=== PATIENT | female | born 1955 | race Hispanic/Latino ===

== ENCOUNTER 2017-07-08 08:48 | Observation (INO) | payer BC, OTHER ==
[2017-07-08 08:48] VITALS: BMI 49.3
--- NOTE | 2017-07-08 09:24 | ED PDOC ---
Arrival/HPI - General Chief Complaint: Abnormal Labs Time Seen by Provider: 07/08/17 09:16 - History of Present Illness Narrative History of Present Illness (Text): 07/08/17 09:21 62yo female presents to the ER per her PMDs request. Pt denies any complaints and states she feels well other cowart. Past Medical History - Provider Review Nursing Documentation Reviewed: Yes - Infectious Disease Hx of Infectious Diseases: None - Cardiac Hx Cardiac Disorders: Yes Hx Hypertension: Yes - Pulmonary Hx Respiratory Disorders: Yes Hx Pulmonary Embolism: Yes (1 yr ago) - Neurological Hx Neurological Disorder: No - HEENT Hx HEENT Disorder: Yes Hx Cataracts: Yes (Cataract sx) - Renal Hx Renal Disorder: No - Endocrine/Metabolic Hx Endocrine Disorders: Yes Hx Hypothyroidism: Yes - Hematological/Oncological Hx Blood Disorders: No - Integumentary Hx Dermatological Disorder: No - Musculoskeletal/Rheumatological Hx Musculoskeletal Disorders: No - Gastrointestinal Hx Gastrointestinal Disorders: Yes Hx Gastroesophageal Reflux: Yes - Genitourinary/Gynecological Hx Genitourinary Disorders: No - Psychiatric Hx Psychophysiologic Disorder: No Hx Substance Use: No - Surgical History Hx Cataract Extraction: Yes (tyrone) Hx Cholecystectomy: Yes - Anesthesia Hx Anesthesia Reactions: No Hx Malignant Hyperthermia: No - Suicidal Assessment Feels Threatened In Home Enviroment: No Family/Social History Family/Social History: Unknown Family HX Smoking Status: Never Smoked Hx Alcohol Use: No Hx Substance Use: No Hx Substance Use Treatment: No Allergies/Home Meds Allergies/Adverse Reactions: Allergies erythromycin base Allergy (Verified 07/08/17 08:55) URTICARIA strawberry Allergy (Verified 07/08/17 08:55) ITCHING Home Medications: Home Meds Medication Instructions Recorded Confirmed Metoprolol Succinate [Toprol XL] 100 mg PO QAM 03/10/12 07/09/16 Levothyroxine [Synthroid] 150 mcg PO DAILY 06/23/16 07/09/16 Warfarin [Coumadin] 4 mg PO DAILY 06/23/16 07/10/16 Cyanocobalamin (Vitamin B-12) 50 mcg PO DAILY 07/09/16 07/09/16 [Vitamin B-12] Folic Acid 1 mg PO DAILY 07/09/16 07/09/16 Metoprolol Succinate [Toprol XL] 50 mg PO HS 07/09/16 07/09/16 Physical Exam - Physical Exam Narrative Physical Exam (Text): - Review of Systems Constitutional: Normal. absent: Fatigue, Weight Change, Fevers Eyes: Normal ENT: denies sore throat, denies tristhmus Respiratory: Normal. absent: SOB, Cough, Sputum Cardiovascular: absent: Chest Pain, Palpitations, Syncope Gastrointestinal: Normal. absent: Abdominal Pain, Diarrhea, Nausea, Vomiting Genitourinary: Normal. absent: Dysuria, Frequency, Hematuria, vaginal bleeding Musculoskeletal: Normal. absent: Arthralgias, Back Pain, Neck Pain Skin: no rashes, no erythema Neurological: absent: Focal Weakness Endocrine: Normal Hemo/Lymphatic: Normal Psychiatric: No suicidal or homicidal ideations Physical exam Patient appears age appropriate in no distress, speaking full sentences without difficulty - Systems Exam Head: Present: Atraumatic, Normocephalic Pupils: Present: PERRL Extroacular Muscles: Present: EOMI Conjunctiva: Present: Normal Mouth: Present: Moist Mucous Membranes Neck: Present: Normal Range of Motion. No: MIDLINE TENDERNESS, Paraspinal Tenderness Respiratory/Chest: Present: Clear to Auscultation, Good Air Exchange. No: Respiratory Distress, Accessory Muscle Use, Tachypneic Cardiovascular: Present: Regular Rate and Rhythm, Normal S1, S2, Peripheal Pulses Present. No: Murmurs Abdomen: Present: Normal Bowel Sounds. No: Tenderness, Distention, Peritoneal Signs, Rebound, Guarding Back: Present: Normal Inspection. No: Midline Tenderness, Paraspinal Tenderness Upper Extremity: Present: Normal Inspection. No: Cyanosis, Edema Lower Extremity: Present: Normal Inspection. No: Edema Neurological: Present: GCS=15, Speech Normal, cranial nerves II through XII fully intact with no cerebellar abnormality, neurosensory fully intact. No focal neurological deficits. Skin: Present: Warm, Dry, Normal Color. No: Rashes Lymphatic: Present: OX3, NI, NC Psychiatric: Present: Alert, Oriented x 3, Normal Insight, Normal Concentration Vital Signs Reviewed: Yes Vital Signs Temp Pulse Resp BP Pulse Ox 07/08/17 08:52 98.9 F 57 L 16 119/85 97 Temperature: Afebrile Blood Pressure: Normal Pulse: Bradycardic Respiratory Rate: Normal Appearance: Positive for: Well-Appearing Pain Distress: None Mental Status: Positive for: Alert and Oriented X 3 Medical Decision Making ED Course and Treatment: 07/08/17 09:23 gilles Crawford she states patient with recently diagnosed Non-Hodgkins Lymphoma. States she needs an emergent procedure, and asked to keep NPO, admin fluids, and obs under her service. pt aware of and agrees with plan. - Medication Orders Current Medication Orders: Sodium Chloride (Sodium Chloride 0.9%) 1,000 mls @ 100 mls/hr IV .Q10H TANYA Disposition/Present on Arrival - Present on Arrival Any Indicators Present on Arrival: No History of DVT/PE: Yes History of Uncontrolled Diabetes: No Urinary Catheter: No History of Decub. Ulcer: No History Surgical Site Infection Following: None - Disposition Have Diagnosis and Disposition been Completed?: Yes Diagnosis: Non-Hodgkin lymphoma Disposition: HOSPITALIZED Disposition Time: 09:24 Patient Plan: Observation Condition: STABLE
[2017-07-08] MEDS ORDERED: Sodium Chloride 0.9% 1,000 ML IV SCH (09:30)
[2017-07-08 09:47] LABS: BASO # 0.03 K/mm3 (0.0-2.0); BASO % 0.2 % (0.0-3.0); EOS # 0.1 (0.0-0.7); EOS % 0.7 % (1.5-5.0); GRAN # 3.67 (1.4-6.5); HEMATOCRIT 39.9 % (36.0-48.0); LYMPH % 64.9 % (22.0-35.0); MEAN CELL VOLUME 93.2 fl (80.0-105.0); MEAN CORPUSCULAR HEMOGLOBIN 30.8 pg (25.0-35.0); MEAN CORPUSCULAR HGB CONC 33.1 g/dl (31.0-37.0); MEAN PLATELET VOLUME 9.6 fl (7.0-11.0); MONO # 0.5 (0.1-0.6); MONO % 4.2 % (1.0-6.0); RED CELL DISTRIBUTION WIDTH 14.4 % (11.5-14.5); WHITE BLOOD COUNT 12.3 10^3/ul (4.5-11.0)
[2017-07-08 09:51] LABS: ALB/GLOB RATIO 1.4 (1.1-1.8); ALKALINE PHOSPHATASE 90 U/L (38-126); ALT/SGPT 64 U/L (7-56); AST/SGOT 67 U/L (14-36); BILIRUBIN,TOTAL 0.7 mg/dL (0.2-1.3); BLOOD UREA NITROGEN 15 mg/dL (7-21); CALCIUM 9.5 mg/dL (8.4-10.5); CARBON DIOXIDE 29 mmol/L (21-33); CHLORIDE 104 mmol/L (95-110); GFR AFRICAN-AMERICAN > 60; GLUCOSE,RANDOM 101 mg/dL (70-110); POTASSIUM 3.9 mmol/L (3.6-5.0); SODIUM 143 mmol/L (132-148)
[2017-07-08 09:53] LABS: INR 1.02 (0.93-1.08); PARTIAL THROMBOPLASTIN TIME 26.5 Seconds (23.7-30.8)
[2017-07-08 10:37] VITALS: TEMP 97.8
[2017-07-08] MEDS ORDERED: Lidocaine 1% Inj (20ml) ONE (12:14)
[2017-07-08] MEDS ORDERED: Propofol 10 mg/ml Inj (20 ML) ONE ×3 (12:18→12:43)
[2017-07-08] MEDS ORDERED: Lactated Ringer's 1,000 ML IV SCH (13:00)
[2017-07-08 13:02] VITALS: RESP 16
[2017-07-08 13:18] VITALS: O2SAT 97
[2017-07-08 13:29] VITALS: BP 117/56; PULSE 58
[2017-07-08] MEDS ORDERED: Levothyroxine 100 MCG TAB PO SCH (13:30)
[2017-07-08] MEDS ORDERED: Pantoprazole 40 mg EC Tab PO SCH (13:30)
[2017-07-08] MEDS ORDERED: Metoprolol Succinate 50 mg XL Tab PO SCH (22:00)
--- NOTE | 2017-07-08 23:06 | CARD ---
APPROVED REPORT EKG Measurement Heart [id number] <Conclusion> Sinus bradycardia Left ventricular hypertrophy with QRS widening Abnormal ECG
--- NOTE | 2017-07-09 00:17 | HP ---
DATE OF EVALUATION: 07/08/2017 HISTORY OF PRESENT ILLNESS: is a 62-year-old female with history of DVT and pulmonary embolism. She complained of dizziness and shortness of breath this morning, she was advised to go to the ER. Symptoms resolved on arrival in the ER. She has persistent leukocytosis. Flow on peripheral blood showed non-Hodgkin's lymphoma. She had PET scan done on Thursday, results are awaited. No chest pain,no shortness of breath. She is currently on Lovenox. PAST MEDICAL HISTORY: Pulmonary embolism, DVT, hypertension,hypothyroidism, and GE reflux. PAST SURGICAL HISTORY: Cholecystectomy. ALLERGIES: ERYTHROMYCIN, STRAWBERRY. HOME MEDICATIONS: Metoprolol 100 mg daily, levothyroxine 150 mcg daily, Coumadin, vitamin B12, folic acid 1 mg daily, 50 mg at bedtime. REVIEW OF SYSTEMS: As per HPI, rest of the 12-point review of systems reviewed and negative. PHYSICAL EXAMINATION: GENERAL: Comfortable in bed. No acute distress. VITAL SIGNS: Stable. Temperature 98.9, heart rate is 57 per minute, respiratory rate 16 per minute, blood pressure 120/85, pulse ox is 97% on room air. HEENT: Normal. Oral mucosa moist. NECK: Supple. No lymphadenopathy. CHEST: S1 and S2 normal. No murmur. No gallop. CARDIOVASCULAR: Within normal limits. ABDOMEN: Soft and nontender. No hepatosplenomegaly. EXTREMITIES: No edema. GINNING OPERATOR: Alert and oriented x3. No focal sensory or motor deficits. LABORATORY DATA: White count 12.3, hemoglobin 13.2, platelet count 176, granulocyte 30%, lymphocyte 64%. Sodium 143, potassium 3.9, creatinine 0.7, AST 67, ALT 64, PT 11, INR 1.02, PTT 26.5. ASSESSMENT AND PLAN: 1. History of pulmonary embolism. 2. Hypercoagulable state. 3. History of DVT. 4. Recent diagnosis of non-Hodgkin's lymphoma. 5. Lymphocytosis, leukocytosis. PLAN: She will be admitted to the hospital. IV fluid normal saline. We will continue home medication. Continue Toprol, continue thiazide 12.5 mg daily, levothyroxine 100 mcg. Continue beta-rachid, metoprolol 50 mg daily, Tylenol 650 q. 4 hours p.r.n. Discussed with the staff nurse the patient. Belia Crawford MD <
--- NOTE | 2017-07-09 02:43 | DS ---
HOSPITAL COURSE: Please see the detailed note H&P dictated on the same day and she is being discharged on day. General condition improved during hospitalization and IV fluid given. She underwent bone marrow aspiration biopsy under conscious sedation. Tolerated procedure very well. Condition stable postprocedure. IV fluids was continued postprocedure. Dizziness resolved. She walked to around prior to discharge. She was able to pass urine. Vital stable. Advised continuing home medications, resume Lovenox tomorrow 100 mg subcutaneously b.i.d. Start Coumadin 10 mg daily for 3 days and then 4 mg daily. Followup in the office in 1 week. Time spent in preparing discharge and coordinating care 50 minutes. Belia Crawford MD
--- NOTE | 2017-07-09 08:51 | PROCN ---
DATE: 07/08/2017 PROCEDURE: 1. Bone marrow aspiration. 2. Bone marrow biopsy. ANESTHESIA: Conscious sedation, local 1% lidocaine. INDICATION FOR THE PROCEDURE: Non-Hodgkin's lymphoma. PROCEDURE NOTE: The patient was laid in left lateral position, cleaning and dressing done on the right iliac crest. She was given conscious sedation for the procedure by cosmetician in the OR. Local anesthesia was given on the right iliac crest with 1% lidocaine. Bone marrow aspirate sample obtained from Jamshidi needle. Bone marrow biopsy was obtained from the different bone marrow puncture site. Good specimen obtained for bone marrow biopsy, 0.6 cm. Specimen sent for molecular study. Cytogenetic slide made bedside. Clot biopsy, bone marrow specimen sent to [facility] lab. No complications for bleeding or pain. She tolerated the procedure well. Vitals stable post procedure. Belia Crawford MD
== END 2017-07-08 18:25 | disposition home or self-care (01) ==
LOC: ED 08:48 → ERH 09:16 → 3RNO 14:20
PROVIDERS: ADMIT Internal Medicine Medical Oncology; ATTEND Internal Medicine Medical Oncology
DX: C85.90 Non-Hodgkin lymphoma, unspecified, unspecified site (principal); D68.59 Other primary thrombophilia; D72.820 Lymphocytosis (symptomatic); E03.9 Hypothyroidism, unspecified; I10 Essential (primary) hypertension; K21.9 Gastro-esophageal reflux disease without esophagitis; Z79.01 Long term (current) use of anticoagulants; Z79.899 Other long term (current) drug therapy; Z86.711 Personal history of pulmonary embolism; Z86.718 Personal history of other venous thrombosis and embolism; Z90.49 Acquired absence of other specified parts of digestive tract; Z98.42 Cataract extraction status, left eye; Z98.41 Cataract extraction status, right eye; Z88.1 Allergy status to other antibiotic agents; Z91.018 Allergy to other foods; R40.2412 Glasgow coma scale score 13-15, at arrival to emergency department
CPT/HCPCS: 38221; 80053; 85025; 85610; 85730; 93005; 99281; G0378; J2704; J7040

== ENCOUNTER 2017-09-09 18:13 | Inpatient (IN) | payer BC, OTHER ==
[2017-09-09 18:18] VITALS: BMI 47.0
[2017-09-09] MEDS ORDERED: Ipratropium 0.02% Inhal Soln (0.5 mg/2.5 ml) UD IH STA (18:24)
[2017-09-09 18:56] LABS: VENOUS BLOOD GAS BASE EXCESS 3.2 mmol/L (0.0-2.0); VENOUS BLOOD PH 7.41 (7.32-7.43)
[2017-09-09 18:59] LABS: BASO # 0.02 K/mm3 (0.0-2.0); BASO % 0.5 % (0.0-3.0); EOS % 0.8 % (1.5-5.0); GRAN # 1.76 (1.4-6.5); GRAN % 46.8 % (50.0-68.0); HEMATOCRIT 28.5 % (36.0-48.0); LYMPH # 1.6 (1.2-3.4); LYMPH % 41.5 % (22.0-35.0); MEAN CELL VOLUME 95.3 fl (80.0-105.0); MEAN CORPUSCULAR HEMOGLOBIN 30.1 pg (25.0-35.0); MEAN CORPUSCULAR HGB CONC 31.6 g/dl (31.0-37.0); MEAN PLATELET VOLUME 9.1 fl (7.0-11.0); MONO # 0.4 (0.1-0.6); MONO % 10.4 % (1.0-6.0); RED CELL DISTRIBUTION WIDTH 16.8 % (11.5-14.5); WHITE BLOOD COUNT 3.8 10^3/ul (4.5-11.0)
--- NOTE | 2017-09-09 19:05 | ED PDOC ---
Arrival/HPI - General Historian: Patient - History of Present Illness Time/Duration: Other (Several Days) Symptom Course: Unchanged Activities at Onset: Rest, Light Context: Home <Alyse Wang PA-C - Last Filed: 09/09/17 22:44> <Sari Malloy - Last Filed: 09/10/17 00:00> - General Chief Complaint: Shortness Of Breath Time Seen by Provider: 09/09/17 18:23 - History of Present Illness Narrative History of Present Illness (Text): 09/09/17 18:57 A 62 year old female whose past medical history includes Non- Hodgkin's Lymphoma , massive PE 2 years ago, on Coumadin, presents to the emergency department after being sent in by her oncologist, Dr. Crawford, with several day duration shortness of breath, worsening today. She states that her symptoms are worsened with activity when she walks more than 50 feet. She states that her symptoms are similar to those when she was diagnosed with PE, but the only difference was that she had irregular heart beat at the time, which she is not experiencing today. She also notes 10 day duration dry cough. She states that 2 days ago she had blood work done and was told that her INR was 1.6 and was advised to increase her dose of Coumadin. She also states that her hemoglobin was 9.7, but her baseline hemoglobin is 12. The patient denies fevers, chills, headache, dizziness, chest pain, abdominal pain, nausea, vomiting, diarrhea, back pain, neck pain, urinary/bowel changes, bloody/dark stools, sick contacts, history of asthma, recent surgeries/hospitalizations or any other complaint. PMD: Dr. Scooter Monge Oncologist: Dr. Crawford (Alyse Wang PA-C) Past Medical History - Provider Review Nursing Documentation Reviewed: Yes - Travel History Have you recently traveled outside [place] w/in the past 3 mons?: No - Infectious Disease Hx of Infectious Diseases: None - Cardiac Hx Cardiac Disorders: Yes Hx Hypertension: Yes - Pulmonary Hx Respiratory Disorders: Yes Hx Pulmonary Embolism: Yes (2 yrs ago) - Neurological Hx Neurological Disorder: No - HEENT Hx HEENT Disorder: Yes Hx Cataracts: Yes (Cataract sx) - Renal Hx Renal Disorder: No - Endocrine/Metabolic Hx Endocrine Disorders: Yes Hx Hypothyroidism: Yes Other/Comment: lymphoma - Hematological/Oncological Hx Blood Transfusions: No - Integumentary Hx Dermatological Disorder: No - Musculoskeletal/Rheumatological Hx Musculoskeletal Disorders: No - Gastrointestinal Hx Gastrointestinal Disorders: Yes Hx Gastroesophageal Reflux: Yes - Genitourinary/Gynecological Hx Genitourinary Disorders: No - Psychiatric Hx Psychophysiologic Disorder: No Hx Substance Use: No - Surgical History Hx Cataract Extraction: Yes (tyrone) Hx Cholecystectomy: Yes - Anesthesia Hx Anesthesia Reactions: No Hx Malignant Hyperthermia: No - Suicidal Assessment Feels Threatened In Home Enviroment: No <Alyes Wang PA-C - Last Filed: 09/09/17 22:44> Family/Social History - Physician Review Nursing Documentation Reviewed: Yes Family/Social History: Other (+ h/o clotting factor deficiency, does not recall which kind, however had a father and a brother who both had a PE) Smoking Status: Never Smoked Hx Alcohol Use: No Hx Substance Use: No Hx Substance Use Treatment: No <Alyse Wang PA-C - Last Filed: 09/09/17 22:44> Allergies/Home Meds <Alyse Wang PA-C - Last Filed: 09/09/17 22:44> <Sari Malloy - Last Filed: 09/10/17 00:00> Allergies/Adverse Reactions: Allergies erythromycin base Allergy (Verified 09/09/17 18:18) URTICARIA strawberry Allergy (Verified 09/09/17 18:18) ITCHING Home Medications: Home Meds Medication Instructions Recorded Confirmed Metoprolol Succinate [Toprol XL] 100 mg PO [facility] 03/10/12 09/09/17 Levothyroxine [Synthroid] 100 mcg PO DAILY 06/23/16 09/09/17 Warfarin [Coumadin] 4 mg PO DAILY 06/23/16 09/09/17 Cyanocobalamin (Vitamin B-12) 0 mcg PO DAILY 07/09/16 09/09/17 [Vitamin B-12] Folic Acid 1 mg PO DAILY 07/09/16 09/09/17 Metoprolol Succinate [Toprol XL] 50 mg PO HS 07/09/16 09/09/17 Pantoprazole Sodium [Protonix] 40 mg PO DAILY 09/20/17 11/22/17 hydroCHLOROthiazide [Microzide] 12.5 mg PO DAILY 07/08/17 09/09/17 Review of Systems - Physician Review All systems were reviewed & negative as marked: Yes - Review of Systems Constitutional: absent: Fevers, Night Sweats Respiratory: SOB, Cough (Dry Cough) Cardiovascular: absent: Chest Pain Gastrointestinal: absent: Abdominal Pain, Stool Changes, Diarrhea, Nausea, Vomiting Genitourinary Female: absent: Urine Output Changes Musculoskeletal: absent: Back Pain, Neck Pain Neurological: Other (generalized weakness). absent: Headache, Dizziness <Alyse Wang PA-C - Last Filed: 09/09/17 22:44> Physical Exam Vital Signs Reviewed: Yes Temperature: Afebrile Blood Pressure: Hypertensive Pulse: Tachycardic Respiratory Rate: Normal Appearance: Positive for: Non-Toxic, Comfortable Pain Distress: None Mental Status: Positive for: Alert and Oriented X 3 - Systems Exam Head: Present: Atraumatic, Normocephalic Pupils: Present: PERRL Extroacular Muscles: Present: EOMI Conjunctiva: Present: Normal Mouth: Present: Dry Neck: Present: Normal Range of Motion Respiratory/Chest: Present: Clear to Auscultation, Good Air Exchange. No: Respiratory Distress, Accessory Muscle Use Cardiovascular: Present: Regular Rate and Rhythm, Normal S1, S2. No: Murmurs Abdomen: Present: Normal Bowel Sounds. No: Tenderness, Distention, Peritoneal Signs Rectal: Present: Hemorrhoids (external hemorrhoids), Other (female RN was present during the entire exam). No: Occult Blood, Rectal Tenderness, Gross Blood Back: Present: Normal Inspection Upper Extremity: Present: Normal Inspection. No: Cyanosis, Edema Lower Extremity: Present: Normal Inspection. No: Edema Neurological: Present: GCS=15, CN II-XII Intact, Speech Normal Skin: Present: Pale Psychiatric: Present: Alert, Oriented x 3, Normal Insight, Normal Concentration <Alyse Wang PA-C - Last Filed: 09/09/17 22:44> Vital Signs Temp Pulse Resp BP Pulse Ox 09/09/17 18:26 22 09/09/17 18:18 99.1 F 100 H 20 154/113 H 98 09/09/17 18:17 99.1 F 100 H 20 154/113 H 98 Medical Decision Making - Lab Interpretations I have reviewed the lab results: Yes - EKG Interpretation Interpreted by ED Physician: Yes (NSR at 85 bpm, incomplete RBBB) Type: 12 lead EKG <Alyse Wang PA-C - Last Filed: 09/09/17 22:44> <Sari Malloy - Last Filed: 09/10/17 00:00> ED Course and Treatment: 09/09/17 19:07 Impression: Patient presents to the emergency department for further evaluation for several day duration shortness of breath. Patient advised by her oncologist to come into the emergency department. DDX: r/o pneumonia vs PE vs CHF Plan: -- EKG -- Chest X-ray -- Labs -- Urinalysis -- Urine Culture -- Atrovent -- Reassess and disposition Prior Visits: Notes and results from previous visits were reviewed. Patient was last seen in the emergency department on 07/08/2017. Patient was seen in the emergency department for evaluation per her PMD's request. Patient denied any complaints. Patient was hospitalized. Progress Notes: EKG shows NSR. Labs reviewed : wbc 3.8, hgb 9, trop (-), bnp (-), ddimer (+), inr 1.5. Labs compared to prior visit, in Jun and Aug last year, it was noted then that the patient had a stable hgb at 13. Considering the patient's complaints and history, CTA chest ordered. On re-evaluation, patient is laying in bed comfortably in no respiratory distress, speaking in full sentences. Patient further adds that she was dx with lymphoma Jun this year, she has not had any chemo or radiation treatment, she was told "watchful waiting" by her oncologist. Lab results d/w the patient. Notified of plan to order CTA chest. CXR still pending. CXR is wnl, CTA chest is (-) for PE. Diagnostic results d/w the patient and family in great detail. Dx of symptomatic anemia d/w the patient. Patient notified of plan for further inpatient observation and treatment which she is agreeable to. (Alyse Wang PA-C) - Lab Interpretations Lab Results: 09/09/17 18:30 09/09/17 18:30 Lab Results 09/09/17 22:20: Urine Color Yellow, Urine Appearance Clear, Urine pH 5.5, Ur Specific [place] 1.010, Urine Protein Negative, Urine Glucose (UA) Negative, Urine Ketones Negative, Urine Blood Negative, Urine Nitrate Negative, Urine Bilirubin Negative, Urine Urobilinogen 0.2, Ur Leukocyte Esterase Negative 09/09/17 19:00: Retic Count 4.50 H 09/09/17 19:00: Iron 45, TIBC 340.8, % Saturation 13 L 09/09/17 19:00: Fibrinogen 445 H, D-Dimer, Quantitative 666 H 09/09/17 18:30: Sodium 142, Chloride 106, Potassium 4.1, Carbon Dioxide 28, Anion Gap 12, BUN 20, Creatinine 1.0, Est GFR ( Amer) > 60, Est GFR (Non- Af Amer) 56, Random Glucose 102, Calcium 9.6, Total Bilirubin 1.1, AST 25, ALT 26, Alkaline Phosphatase 94, Lactate Dehydrogenase 967 H, Total Creatine Kinase 62, Troponin I < 0.01, NT-Pro-B Natriuret Pep 188, Total Protein 6.6, Albumin 3.8, Globulin 2.8, Albumin/Globulin Ratio 1.4 09/09/17 18:30: pO2 58 H, VBG pH 7.41, VBG pCO2 45.0, VBG HCO3 28.5 H, VBG Total CO2 29.9 H, VBG O2 Sat (Calc) 93.4 H, VBG Base Excess 3.2 H, VBG Potassium 4.1, Sodium 140.0, Chloride 109.0 H, Glucose 104, Lactate 1.5, FiO2 21.0, Venous Blood Potassium 4.1 09/09/17 18:30: PT 17.2 H, INR 1.56 H, APTT 27.6 09/09/17 18:30: WBC 3.8 L D, RBC 2.99 L, Hgb 9.0 L D, Hct 28.5 L, MCV 95.3, MCH 30.1, MCHC 31.6, RDW 16.8 H, Plt Count 142, MPV 9.1, Gran % 46.8 L, Lymph % ( Auto) 41.5 H, [place] % (Auto) 10.4 H, Eos % (Auto) 0.8 L, Baso % (Auto) 0.5, Gran # 1.76, Lymph # 1.6, [place] # 0.4, Eos # 0.0, Baso # 0.02 - RAD Interpretation Narrative RAD Interpretations (Text): 09/09/17 22:27 CXR : NAD as read by PA CTA chest : FINDINGS: LIMITATIONS: Moderate respiratory motion artifact. PULMONARY ARTERIES: Exam is somewhat limited for the detection of pulmonary emboli secondary to motion artifact. Allowing for this, no definite pulmonary emboli are seen. AORTA: No evidence of aortic dissection. LUNGS: Low lung volumes. Scattered areas of mosaic attenuation in the lung apices, which could represent scattered air trapping from small airways disease, such as reactive airways disease. Areas of linear scarring or atelectasis in the right lung. Multifocal, patchy ground glass densities in the posterior lungs bilaterally, most compatible with diffuse dependent atelectasis. No definite focal consolidation/infiltrate is seen in the lungs. No evidence of diffuse pulmonary vascular congestion. PLEURAL SPACE: No pneumothorax or pleural effusions seen. HEART: Heart appears mildly enlarged. Coronary artery calcification. No evidence of significant pericardial effusion. BONES/JOINTS: No acute bony abnormality identified. SOFT TISSUES: No acute abnormality of the visualized soft tissues seen. LYMPH NODES: No evidence of diffuse lymphadenopathy. SPLEEN: Visualized portions of the spleen appear enlarged. The spleen is incompletely visualized. IMPRESSION: - No evidence of pulmonary embolism or other significant acute abnormality in the chest. - Splenomegaly incidentally noted. - See above for remaining findings. Dictated and Authenticated by: Ary Thompson MD 09/09/2017 10:05 PM Eastern Time ([place] & [place]) (Felipe VÁSQUEZ,Alyse Sanabria) Radiology Orders: 09/09/17 18:26 CHEST ONE VIEW [RAD] Stat 09/09/17 20:03 ANGIO CHEST PE PROTOCOL [CT] Stat - Medication Orders Current Medication Orders: Acetaminophen (Tylenol 325mg Tab) 650 mg PO Q6H PRN PRN Reason: Fever >100.4 F Acetaminophen (Tylenol 325mg Tab) 975 mg PO STAT STA Stop: 09/09/17 23:57 Enoxaparin Sodium (Lovenox) 120 mg SC Q12H TANYA PRN Reason: Protocol Last Admin: 09/09/17 22:00 Dose: Comments: Hold as per order Folic Acid (Folic Acid) 1 mg PO DAILY [facility] Levalbuterol HCl (Xopenex) 1.25 mg IH [id number] TANYA Levothyroxine Sodium (Synthroid) 100 mcg PO DAILY TANYA Metoprolol Succinate (Toprol Xl) 50 mg PO HS TANYA Ondansetron HCl (Zofran Inj) 4 mg IVP Q6H PRN PRN Reason: Nausea/Vomiting Pantoprazole Sodium (Protonix Ec Tab) 40 mg PO DAILY TANYA Warfarin Sodium (Coumadin) 4 mg PO DAILY TANYA PRN Reason: Protocol Discontinued Medications Enoxaparin Sodium (Lovenox) 120 mg SC STAT STA PRN Reason: Protocol Stop: 09/09/17 20:17 Last Admin: 09/09/17 22:44 Dose: 120 mg Subcutaneous Administrations Document 09/09/17 22:44 SS (Rec: 09/09/17 22:45 SS [id number]) Injection Site MAR Injection Site Right Abdomen Charges for Administration # of Subcutaneous Administrations 1 Ipratropium [place] (Atrovent) 0.5 mg IH STAT STA Stop: 09/09/17 18:25 Last Admin: 09/09/17 19:29 Dose: 0.5 mg - PA / AIR CONDITIONING UNIT ASSEMBLER / Resident Statement / has reviewed & agrees with the documentation as recorded. - Scribe Statement The provider has reviewed the documentation as recorded by the Scribe <Alyse Wang PA-C - Last Filed: 09/09/17 22:44> - PA / AIR CONDITIONING UNIT ASSEMBLER / Resident Statement / has reviewed & agrees with the documentation as recorded. <Sari Malloy - Last Filed: 09/10/17 00:00> - Scribe Statement Lauren Horn Provider Scribe Attestation: All medical record entries made by the Scribe were at my direction and personally dictated by me. I have reviewed the chart and agree that the record accurately reflects my personal performance of the history, physical exam, medical decision making, and the department course for this patient. I have also personally directed, reviewed, and agree with the discharge instructions and disposition. (Alyse Wang PA-C) Disposition/Present on Arrival - Present on Arrival Any Indicators Present on Arrival: Yes History of DVT/PE: Yes History of Uncontrolled Diabetes: No Urinary Catheter: No History of Decub. Ulcer: No History Surgical Site Infection Following: None - Disposition Have Diagnosis and Disposition been Completed?: Yes Disposition Time: :15 Patient Plan: Observation <Alyse Wang PA-C - Last Filed: 09/09/17 22:44> <Sari Malloy - Last Filed: 09/10/17 00:00> - Disposition Diagnosis: SOB (shortness of breath), Anemia, Cough Disposition: HOSPITALIZED Patient Problems: Current Active Problems Problem Status Onset Anemia Acute Cough Acute SOB (shortness of breath) Acute Condition: STABLE
[2017-09-09 19:06] LABS: ALB/GLOB RATIO 1.4 (1.1-1.8); ALKALINE PHOSPHATASE 94 U/L (38-126); ALT/SGPT 26 U/L (7-56); AST/SGOT 25 U/L (14-36); BILIRUBIN,TOTAL 1.1 mg/dL (0.2-1.3); BLOOD UREA NITROGEN 20 mg/dL (7-21); CALCIUM 9.6 mg/dL (8.4-10.5); CARBON DIOXIDE 28 mmol/L (21-33); CHLORIDE 106 mmol/L (98-107); GFR AFRICAN-AMERICAN > 60; GLUCOSE,RANDOM 102 mg/dL (70-110); POTASSIUM 4.1 mmol/L (3.6-5.0); SODIUM 142 mmol/L (132-148); TOTAL PROTEIN 6.6 g/dL (5.8-8.3)
[2017-09-09 19:14] LABS: TROPONIN I < 0.01 ng/mL
[2017-09-09 19:26] LABS: INR 1.56 (0.93-1.08); PARTIAL THROMBOPLASTIN TIME 27.6 Seconds (25.1-36.5)
[2017-09-09 19:42] LABS: D DIMER 666 ng/mL (0-243); FIBRINOGEN 445 mg/dl (200-393)
[2017-09-09] MEDS ORDERED: Iodixanol 320 MG/ML 100 ML BOTTLE IV ONE (20:41)
[2017-09-09] MEDS: Enoxaparin 100 mg Syringe SC STA ×2 (21:44→22:44)
[2017-09-09] MEDS: Enoxaparin 120 mg Syringe SC SCH (22:00)
--- NOTE | 2017-09-09 22:05 | CT ---
EXAM: CT Angiography Chest With Intravenous Contrast EXAM DATE/TIME: 09/09/2017 8:03 PM CLINICAL HISTORY: 62 years old, female; Signs and symptoms; Shortness of breath; Additional info: SOB, R/O pe TECHNIQUE: Axial computed tomographic angiography images of the chest with intravenous contrast using pulmonary embolism protocol. All CT scans at this facility use one or more dose reduction techniques, viz.: automated exposure control; ma/kV adjustment per patient size (including targeted exams where dose is matched to indication; i.e. head); or iterative reconstruction technique. MIP reconstructed images were created and reviewed. Coronal and sagittal reformatted images were created and reviewed. CONTRAST: 96 mL of VISIPAQUE administered intravenously. COMPARISON: Prior chest of 2016-07-09 FINDINGS: LIMITATIONS: Moderate respiratory motion artifact. PULMONARY ARTERIES: Exam is somewhat limited for the detection of pulmonary emboli secondary to motion artifact. Allowing for this, no definite pulmonary emboli are seen. AORTA: No evidence of aortic dissection. LUNGS: Low lung volumes. Scattered areas of mosaic attenuation in the lung apices, which could represent scattered air trapping from small airways disease, such as reactive airways disease. Areas of linear scarring or atelectasis in the right lung. Multifocal, patchy ground glass densities in the posterior lungs bilaterally, most compatible with diffuse dependent atelectasis. No definite focal consolidation/infiltrate is seen in the lungs. No evidence of diffuse pulmonary vascular congestion. PLEURAL SPACE: No pneumothorax or pleural effusions seen. HEART: Heart appears mildly enlarged. Coronary artery calcification. No evidence of significant pericardial effusion. BONES/JOINTS: No acute bony abnormality identified. SOFT TISSUES: No acute abnormality of the visualized soft tissues seen. LYMPH NODES: No evidence of diffuse lymphadenopathy. SPLEEN: Visualized portions of the spleen appear enlarged. The spleen is incompletely visualized. IMPRESSION: - No evidence of pulmonary embolism or other significant acute abnormality in the chest. - Splenomegaly incidentally noted. - See above for remaining findings.
[2017-09-09 22:37] LABS: PH,URINE 5.5 (4.7-8.0); URINE BILIRUBIN NEGATIVE (NEGATIVE); URINE BLOOD NEGATIVE (NEGATIVE); URINE GLUCOSE (UA) NEGATIVE (NEGATIVE); URINE KETONE NEGATIVE (NEGATIVE); URINE LEUKOCYTE ESTERASE NEGATIVE Leu/uL (NEGATIVE); URINE PROTEIN NEGATIVE mg/dL (<30 mg/dL); URINE UROBILINOGEN 0.2 E.U./dL (<1 E.U./dL)
[2017-09-09 22:41] LABS: URINE COLOR YELLOW (YELLOW)
[2017-09-09 22:42] LABS: URINE APPEARANCE CLEAR (CLEAR)
[2017-09-10] MEDS: Metoprolol Succinate 50 mg XL Tab PO SCH ×2 (00:46→21:55)
[2017-09-10] MEDS: Levalbuterol 1.25 MG/3 ML Inhal Soln UD IH SCH ×4 (02:04→19:34)
--- NOTE | 2017-09-10 03:03 | CP.PCM.PCO ---
Assessment & Plan - Assessment and Plan (Free Text) Assessment: Records reviewed. newly diagnosed marginal zone splenic lymphoma. new onset anemia, leukopenia. Likely due to NHL. CT chest negative for PE. No evidence of hemolysis. cardiac evaluation for shortness of breath. US abdomen for spleen and liver size ordered. She will need treatment for lymphoma due to progressive cytopenias. Repeat CT-PET will be scheduled (outpatient ) for rapid onset of cytopenias , r/ o possibility of conversion to aggressive lymphoma. - Date & Time Date: 09/10/17
[2017-09-10 08:12] LABS: ALB/GLOB RATIO 1.3 (1.1-1.8); ALKALINE PHOSPHATASE 92 U/L (38-126); ALT/SGPT 35 U/L (7-56); AST/SGOT 23 U/L (14-36); BILIRUBIN,TOTAL 1.2 mg/dL (0.2-1.3); BLOOD UREA NITROGEN 15 mg/dL (7-21); CALCIUM 9.5 mg/dL (8.4-10.5); CARBON DIOXIDE 27 mmol/L (21-33); CHLORIDE 106 mmol/L (98-107); GFR AFRICAN-AMERICAN > 60; GLUCOSE,RANDOM 108 mg/dL (70-110); MAGNESIUM 1.8 mg/dL (1.7-2.2); PHOSPHOROUS 3.6 mg/dL (2.5-4.5); POTASSIUM 3.6 mmol/L (3.6-5.0); SODIUM 141 mmol/L (132-148); TOTAL PROTEIN 6.5 g/dL (5.8-8.3)
[2017-09-10] MEDS: Levothyroxine 100 MCG TAB PO SCH (08:21)
[2017-09-10 08:23] LABS: FREE T4 1.25 ng/dL (0.78-2.19)
[2017-09-10 08:25] LABS: BASO # 0.02 K/mm3 (0.0-2.0); BASO % 0.6 % (0.0-3.0); EOS % 1.2 % (1.5-5.0); GRAN # 1.54 (1.4-6.5); GRAN % 44.9 % (50.0-68.0); HEMATOCRIT 27.8 % (36.0-48.0); LYMPH # 1.5 (1.2-3.4); LYMPH % 44.6 % (22.0-35.0); MEAN CELL VOLUME 94.9 fl (80.0-105.0); MEAN CORPUSCULAR HGB CONC 31.7 g/dl (31.0-37.0); MEAN PLATELET VOLUME 9.4 fl (7.0-11.0); MONO # 0.3 (0.1-0.6); MONO % 8.7 % (1.0-6.0); RED CELL DISTRIBUTION WIDTH 16.9 % (11.5-14.5); WHITE BLOOD COUNT 3.4 10^3/ul (4.5-11.0)
[2017-09-10 08:37] LABS: THYROID STIMULATING HORMONE 5.62 mIU/mL (0.46-4.68)
--- NOTE | 2017-09-10 09:15 | CARD ---
APPROVED REPORT EKG Measurement Heart [id number] <Conclusion> Normal sinus rhythm Incomplete right bundle branch block Voltage criteria for left ventricular hypertrophy No change
[2017-09-10] MEDS: Potassium Chloride 20 mEq ER Tab PO SCH (09:21)
[2017-09-10] MEDS: Enoxaparin 120 mg Syringe SC SCH ×2 (09:21→20:11)
--- NOTE | 2017-09-10 10:06 | RAD ---
PROCEDURE: CHEST RADIOGRAPH, 1 VIEW HISTORY: sob COMPARISON: Comparison made with concurrent CTA of the chest dated 09/09/2017 2052 hours. Comparison also made with chest radiograph dated 07/09/2016 FINDINGS: LUNGS: Poor inspiration with low lung volumes, crowded bronchovascular markings and mild bibasilar atelectasis. PLEURA: No pneumothorax or pleural fluid seen. CARDIOVASCULAR: Heart appears mildly enlarged OSSEOUS STRUCTURES: No significant abnormalities. VISUALIZED UPPER ABDOMEN: Normal. OTHER FINDINGS: None. IMPRESSION: Poor inspiration with low lung volumes, crowded bronchovascular markings and mild bibasilar atelectasis.
--- NOTE | 2017-09-10 10:31 | CON ---
DATE: 09/10/2017 INDICATIONS: Dyspnea. HISTORY OF PRESENT ILLNESS: This is a 62-year-old woman known to me admitted with a short history of increasing dyspnea on exertion. She has recently been diagnosed as non-Hodgkin lymphoma. She developed anemia. The hemoglobin is down about ~3 grams. Dyspnea occurs with walking short distances. There was also a nonproductive cough, but no chest pain, orthopnea, PND, syncope, presyncope, lightheadedness, dizziness, vertigo, palpitations, edema, claudication, fever, chills, cough, sputum production, hemoptysis, abdominal pain, nausea, vomiting, diarrhea, constipation, or melena. She states that her symptoms are similar to the shortness of breath that she experienced with pulmonary embolus in 08/2016. PAST MEDICAL HISTORY: Notable for pulmonary embolus, hypercoagulable state, paroxysmal atrial fibrillation, hypertension, obesity, anemia, recent diagnosis of non-Hodgkin lymphoma undergoing evaluation. She has a history of hypothyroidism, migraine headaches, GERD, cataracts, retinal surgery and gallbladder surgery. There is no history of myocardial infarction, angina, congestive heart failure, rheumatic fever, stroke, TIA, diabetes or gout. MEDICATIONS AT THE TIME OF ADMISSION: Include metoprolol, Synthroid, warfarin, B12, folic acid, Protonix, hydrochlorothiazide. ALLERGIES: SHE NOTES AN ALLERGY TO ERYTHROMYCIN. SOCIAL HISTORY: She lives at home with her . She does not smoke. She does not drink alcohol. FAMILY HISTORY: Notable for hypertension, pulmonary embolus, cancer. REVIEW OF SYSTEMS: A 10-point review of systems is otherwise unremarkable except as noted above. PHYSICAL EXAMINATION: GENERAL: She is a well-developed woman, sitting on bed on 3R telemetry, in no acute distress. VITAL SIGNS: She is in sinus rhythm. She is afebrile. Blood pressure 116/66, respirations 20, and O2 sat 94-98% on room air. HEENT: Revealed no neck vein distention, thyromegaly or carotid bruits. Mucous membranes are moist. Conjunctivae pink. NECK: Supple. LUNGS: Hanna clear. HEART: Revealed normal first and second heart sounds without murmur, gallop, rub or click. PMI was not palpable. ABDOMEN: Soft. Bowel sounds are present. No mass or organomegaly appreciated, although she apparently has splenomegaly. No palpable abdominal aortic aneurysm. No CVA tenderness. EXTREMITIES: Revealed mild peripheral edema. NEUROLOGIC: She is awake, alert, and oriented. SKIN: Warm and dry. No rashes or cellulitis. PSYCHIATRIC: Normal as to mood and affect. LABORATORY AND IMAGING: EKG demonstrated regular sinus rhythm, right ventricular conduction delay, poor R wave progression, left axis deviation. No change from a previous EKG. A portable chest x-ray is not yet interpreted, to me there are clear lung hanna. No evidence of CHF, infiltrate or effusion. A CT scan of the chest was unremarkable. There was no evidence of pulmonary embolism or of a significant acute abnormality in the chest. Splenomegaly is incidentally noted. White count 3,800, repeat 3,400; hemoglobin 9, repeat 8.8; hematocrit 28.5, repeat 27.8; platelet count normal. Haptoglobin normal. PT 17.2, INR 1.56, PTT 27.6. Fibrinogen elevated at 445. D-dimer elevated at 666. Blood gas is noted. Electrolytes, BUN, creatinine, blood sugar, LFTs were all noted, unremarkable. CK 62, troponin negative x2, BNP 188. Thyroid function tests are noted, basically unremarkable except that the TSH is 5.62. Urinalysis was unremarkable. IMPRESSION: Makeda Carlson is a 62-year-old woman admitted with dyspnea on exertion in the setting of recent diagnosis of non-Hodgkin lymphoma and anemia, which is worse than usual. She has a history of hypercoagulable state, massive pulmonary embolus in 08/2016, paroxysmal atrial fibrillation, hypertension and obesity. Her INR was subtherapeutic at the time of admission. Currently, she is asymptomatic. There was no evidence of paroxysmal atrial fibrillation on her EKG or telemetry so far. Troponins and EKG, do not suggest myocardial ischemia or myocardial infarction. At this time, I agree with current plans. She is on a telemetry bed. She is getting Lovenox, warfarin, metoprolol, hydrochlorothiazide, Protonix, and Synthroid. An echocardiogram is ordered. She is having a Hematology evaluation. Transfusion may be advisable. I will order stool for occult blood. We will monitor Is and Os and hemoglobin and hematocrit daily. I will review her old records to see if she has had nuclear stress testing, which I believe was negative in the past. She can be out of bed. I will follow along with you. I will make additional recommendations based on her clinical course. Yifan Rodriguez MD MTDRaya
[2017-09-10 17:19] VITALS: O2SAT 95
--- NOTE | 2017-09-10 19:51 | CARD ---
APPROVED REPORT EKG Measurement Heart [id number] [id number] <Conclusion> Normal sinus rhythm Moderate voltage criteria for LVH, may be normal variant Borderline ECG
[2017-09-11] MEDS: Levalbuterol 1.25 MG/3 ML Inhal Soln UD IH SCH ×4 (01:04→19:47)
--- NOTE | 2017-09-11 01:59 | HP ---
HISTORY OF PRESENT ILLNESS: The patient is 62-year-old, patient of Dr. Crawford, who was referred by Dr. Crawford for evaluation because she was complaining of increasing shortness of breath, feeling extremely tired as compared to her baseline. She has workup done as outpatient. She recently had bone marrow biopsy done that also shows lymphoma. The patient states, she does not have any rectal bleeding or hematuria. She does not have any nausea, no black stool, average although she has lost appetite recently. So, because of increasing shortness of breath, she came to emergency room. No history of fever or chills. No chest pain. Does have shortness of breath. PAST MEDICAL HISTORY: Significant for; 1. DVT and pulmonary embolism. The patient has been using Coumadin and she was found to be subtherapeutic, so she was given Lovenox in the ER. 2. History of hypertension. 3. Hypothyroidism. 4. Gastroesophageal reflux disease. PAST SURGICAL HISTORY: Significant for cholecystectomy. ALLERGIES: SHE IS ALLERGIC TO STRAWBERRIES AND ERYTHROMYCIN. MEDICATIONS AT HOME: She is on Coumadin and B12. She is on metoprolol 50 mg at bedtime, levothyroxine 100 mcg daily, folic acid 1 mg daily, hydrochlorothiazide 12.5 daily, Coumadin 4 mg daily, and Protonix. SOCIAL HISTORY: Denies smoking, drinking, or alcohol use. 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 PHYSICAL EXAMINATION: GENERAL: She looks pale; otherwise, awake, alert, and oriented. Mild shortness of breath on exertion. VITAL SIGNS: She is afebrile, pulse 77, respirations 18, blood pressure 106/54. LUNGS: Bilateral fair airflow. No rhonchi or crackles. HEART: S1 and S2 audible. ABDOMEN: Soft and nontender. No rebound. No guarding. NEUROLOGIC: She is alert, awake, oriented, and communicative. LABORATORY DATA: WBC is 3.4, hemoglobin is 8.3, hematocrit is 27.8, and platelets 132. PT is 17.1 and INR is 1.56. D-dimer is 666. Fibrinogen is 445. Chemistry: Sodium 141, potassium 3.6, chloride 106, CO2 of 27, BUN is 15, creatinine 0.9, and blood sugar of 108. LFTs are within normal limits. TSH is 5.62. Urinalysis is unremarkable. CT scan of the chest, no evidence of pulmonary embolism, although there is significant acute abnormality in the chest, splenomegaly is incidental finding. The patient had bone marrow done, shows non-Hodgkin lymphoma. ASSESSMENT AND PLAN: 1. Fatigue and exertional dyspnea, probably secondary to underlying anemia. 2. History of non-Hodgkin's lymphoma. 3. History of pulmonary embolism. 4. History of deep venous thrombosis. PLAN: The patient will be given Coumadin 10 mg today. We will follow up PT/INR in a.m. She will receive 2 blood transfusions as ordered by Dr. Crawford, out-of-bed to chair, also get echocardiogram, and we will follow the patient in a.m. Maximo Pinedo MD
[2017-09-11] MEDS: Pantoprazole 40 mg EC Tab PO SCH (06:35)
[2017-09-11] MEDS: Levothyroxine 100 MCG TAB PO SCH (06:35)
[2017-09-11 07:12] LABS: BASO # 0.01 K/mm3 (0.0-2.0); BASO % 0.3 % (0.0-3.0); EOS # 0.1 (0.0-0.7); EOS % 1.6 % (1.5-5.0); GRAN # 1.69 (1.4-6.5); HEMATOCRIT 30.1 % (36.0-48.0); LYMPH # 1.6 (1.2-3.4); LYMPH % 43.2 % (22.0-35.0); MEAN CELL VOLUME 94.4 fl (80.0-105.0); MEAN CORPUSCULAR HEMOGLOBIN 29.8 pg (25.0-35.0); MEAN CORPUSCULAR HGB CONC 31.6 g/dl (31.0-37.0); MEAN PLATELET VOLUME 9.2 fl (7.0-11.0); MONO # 0.4 (0.1-0.6); MONO % 9.9 % (1.0-6.0); WHITE BLOOD COUNT 3.8 10^3/ul (4.5-11.0)
[2017-09-11 07:24] LABS: INR 1.51 (0.93-1.08)
[2017-09-11] MEDS: Enoxaparin 120 mg Syringe SC SCH ×2 (08:57→21:11)
[2017-09-11] MEDS: Potassium Chloride 20 mEq ER Tab PO SCH (09:00)
--- NOTE | 2017-09-11 09:05 | PN ---
DATE: 09/11/2017 SUBJECTIVE: The patient is seen sitting in chair on telemetry. She is comfortable. Her dyspnea is somewhat improved. She denies any chest pain. CURRENT MEDICATIONS: Include warfarin, folic acid, potassium, metoprolol 100 mg daily, Lovenox, hydrochlorothiazide, Protonix, Synthroid, and Xopenex. OBJECTIVE: GENERAL: She is a obese, middle-aged woman. VITAL SIGNS: Her blood pressure is 118/60 with a pulse of 70 and sinus, and respirations are 16. She is afebrile. HEENT: No JVD. CHEST: Clear to auscultation and percussion. HEART: PMI normal position, distant sounds noted. ABDOMEN: Soft, obese, and nontender with normoactive bowel sounds. EXTREMITIES: No edema. DIAGNOSTIC DATA: White count is 3.4, hemoglobin and hematocrit 8.8 and 27.8 with platelet count of 132,000. Potassium is 3.6, BUN and creatinine are 15 and 0.9. IMPRESSION: 1. Exertional dyspnea. 2. Recent diagnosis of non-Hodgkin lymphoma. 3. History of remote pulmonary embolus. 4. Paroxysmal atrial fibrillation. 5. Hypercoagulable state. RECOMMENDATIONS: Her current medications should continue. Her EKG is pending. An echocardiogram will be obtained today. Old records will be reviewed. Prior stress test will be reviewed as well. Further recommendations will be based upon those results. We will be happy to follow along as needed. Ignacio Fink MD
--- NOTE | 2017-09-11 10:04 | US ---
HISTORY: Hepatosplenomegaly, history of lymphoma. COMPARISON: None. TECHNIQUE: Sonographic evaluation of the right upper quadrant of the abdomen. FINDINGS: LIVER: Measures 19.5 cm in length. Hepatopedal blood flow. Fatty infiltration manifest ultrasonographically as increased echogenicity of the liver parenchyma. No mass. No intrahepatic bile duct dilatation. GALLBLADDER: Status post cholecystectomy. No abnormality is seen in the gallbladder fossa. COMMON BILE DUCT: Measures 6.4 mm. No stones. No dilatation. PANCREAS: Unremarkable as visualized. No mass. No ductal dilatation. RIGHT KIDNEY: Measures 4.9 x 6.5 cm in length. Normal echogenicity. No calculus, mass, or hydronephrosis. AORTA: No aneurysmal dilatation. IVC: Unremarkable. OTHER FINDINGS: Splenomegaly. Orthogonal measurements 7.4 x 9.6 x 23.4 cm IMPRESSION: Hepatosplenomegaly. No focal abnormalities detected.
[2017-09-11 18:06] VITALS: RESP 20
--- NOTE | 2017-09-11 18:50 | PN ---
DATE: SUBJECTIVE: The patient is 62-year-old, seen and examined, sitting in chair, seems to be comfortable, still get short of breath on walking, received 2 blood transfusions. No nausea or vomiting. No diarrhea. No cough. No congestion. Complains of decreased appetite. PHYSICAL EXAMINATION: VITAL SIGNS: She is afebrile, pulse 76, respirations 16, blood pressure 117/64. LUNGS: Bilateral fair airflow. No rhonchi or crackles. HEART: S1 and S2, audible. ABDOMEN: Soft, obese, nontender. No rebound. No guarding. NEUROLOGIC: The patient is awake, alert, oriented, and communicative. LABORATORY DATA: WBC is 3.8, hemoglobin 9.5, hematocrit 30.1, platelets of 122. PT 16.8 and INR 1.51. Chemistry; sodium 141, potassium 3.6, chloride 106, CO2 of 27, BUN 15, creatinine 0.9. TSH is 5.62. She had abdominal sonogram done, which showed hepatosplenomegaly. No focal abnormality detected. ASSESSMENT AND PLAN: 1. Symptomatic anemia. 2. Non-Hodgkin lymphoma. 3. Pancytopenia. 4. History of pulmonary embolism. 5. Hypertension. 6. Hypothyroidism. PLAN: The patient will receive both Lovenox and Coumadin. Follow up PT/INR in a.m. Follow up H and H in a.m. She will receive blood transfusion and we will follow up her H and H and PT/INR in a.m. Maximo Pinedo MD
[2017-09-11] MEDS: Metoprolol Succinate 50 mg XL Tab PO SCH (21:12)
[2017-09-12] MEDS: Levalbuterol 1.25 MG/3 ML Inhal Soln UD IH SCH ×2 (02:03→08:23)
[2017-09-12] MEDS: Pantoprazole 40 mg EC Tab PO SCH (06:28)
[2017-09-12 06:45] VITALS: BP 122/68; PULSE 62; TEMP 98.1
[2017-09-12 07:40] LABS: BASO # 0.02 K/mm3 (0.0-2.0); BASO % 0.6 % (0.0-3.0); EOS % 0.9 % (1.5-5.0); GRAN # 1.47 (1.4-6.5); GRAN % 44.2 % (50.0-68.0); HEMATOCRIT 31.5 % (36.0-48.0); INR 1.96 (0.93-1.08); LYMPH # 1.5 (1.2-3.4); LYMPH % 44.1 % (22.0-35.0); MEAN CELL VOLUME 94.3 fl (80.0-105.0); MEAN CORPUSCULAR HEMOGLOBIN 29.6 pg (25.0-35.0); MEAN CORPUSCULAR HGB CONC 31.4 g/dl (31.0-37.0); MEAN PLATELET VOLUME 9.3 fl (7.0-11.0); MONO # 0.3 (0.1-0.6); MONO % 10.2 % (1.0-6.0); RED CELL DISTRIBUTION WIDTH 17.4 % (11.5-14.5); WHITE BLOOD COUNT 3.3 10^3/ul (4.5-11.0)
--- NOTE | 2017-09-12 08:12 | CP.PCM.PN ---
Subjective - Date & Time of Evaluation Date of Evaluation: 09/12/17 Time of Evaluation: 07:00 - Subjective Subjective: Stable on 3r. No CP or SOB at rest. She feels better. S/P 3 units RBC's. present. V/S noted. BP low during the night : 93/44 recorded PE: Lungs: clear Cor.: S1S2 Abd.: obese. benign Ext.: no edema Neuro.: alert Labs noted: WBC= 3300, H/H = 9.9/31.5, Pl Ct= 118.000, INR= 1.96 Echo: LV function is NL. Full report to follow. Stool for OB: neg Objective - Vital Signs/Intake and Output Vital Signs (last 24 hours): Temp Pulse Resp BP Pulse Ox 98.1 F 62 20 122/68 95 09/12/17 06:00 09/12/17 06:00 09/12/17 06:00 09/12/17 06:00 09/12/17 06:00 Intake and Output: 09/12/17 09/12/17 06:59 18:59 Intake Total 360 Balance 360 - Medications Medications: Current Medications Acetaminophen (Tylenol 325mg Tab) 650 mg PO Q6H PRN PRN Reason: Fever >100.4 F Enoxaparin Sodium (Lovenox) 120 mg SC Q12H TANYA PRN Reason: Protocol Last Admin: 09/11/17 21:11 Dose: 120 mg Folic Acid (Folic Acid) 1 mg PO DAILY [facility] Last Admin: 09/11/17 09:00 Dose: 1 mg Hydrochlorothiazide (Microzide) 12.5 mg PO DAILY [facility] Last Admin: 09/11/17 09:00 Dose: 12.5 mg Levalbuterol HCl (Xopenex) 1.25 mg IH [id number] [facility] Last Admin: 09/12/17 02:03 Dose: Not Given Levothyroxine Sodium (Synthroid) 100 mcg PO ACB [facility] Last Admin: 09/11/17 06:35 Dose: 100 mcg Metoprolol Succinate (Toprol Xl) 50 mg PO HS [facility] Last Admin: 09/11/17 21:12 Dose: 50 mg Metoprolol Tartrate (Lopressor) 100 mg PO DAILY [facility] Last Admin: 09/11/17 09:00 Dose: 100 mg Ondansetron HCl (Zofran Inj) 4 mg IVP Q6H PRN PRN Reason: Nausea/Vomiting Pantoprazole Sodium (Protonix Ec Tab) 40 mg PO 0600 [facility] Last Admin: 09/12/17 06:28 Dose: 40 mg Potassium Chloride (K-Dur 20 Meq Er Tab) 20 meq PO DAILY [facility] Last Admin: 09/11/17 09:00 Dose: 20 meq - Labs Labs: 09/12/17 07:00 PT 21.9 SECONDS (9.4-12.5) H 09/12/17 07:00 INR 1.96 (0.93-1.08) H 09/12/17 07:00 APTT 27.6 Seconds (25.1-36.5) 09/09/17 18:30 Assessment and Plan - Assessment and Plan (Free Text) Assessment: Dyspnea/Cough Anemia/Pancytopenia NHL Hepatosplenomegaly H/O massive PE with DVT/Hypercoag. State HBP Obesity Hypothyroidism GERD Migraine SANTIAGO cataracts Retinal surgery GB surgery Plan: OOB per Dr. Pinedo. Heme F/U: Rx. for NHL planned Will arrange out-pt nuclear stress test: no recent stress test. last ~ 2013. Warfarin 5mg. today and D/C Lovenox. Possible D/C home today.
--- NOTE | 2017-09-12 08:55 | CARD ---
APPROVED REPORT EXAM: Two-dimensional and M-mode echocardiogram with Doppler and color Doppler. Other Information Quality : AverageRhythm : INDICATION Dyspnea 2D DIMENSIONS Left Atrium (2D)4.4 (1.6-4.0cm)IVSd1.1 (0.7-1.1cm) LVDd5.0 (3.9-5.9cm)PWd1.2 (0.7-1.1cm) LVDs3.3 (2.5-4.0cm)FS (%) 34.3 % LVEF (%)63.0 (>50%) M-Mode DIMENSIONS Aortic Root3.20 (2.2-3.7cm)Aortic Cusp Exc.2.00 (1.5-2.0cm) Aortic Valve AoV Peak Twvaiiiu851.0cm/sAoV VTI54.0cm Mitral Valve MV E Lerrljzf58.7cm/sMV A Jkwqbsyd12.4cm/sE/A ratio1.1 TDI Lateral E' Peak V12.90cm/sMedial E' Peak V8.97cm/sE/Lateral E'7.0 E/Medial E'10.1 Pulmonary Valve PV Peak Inmtthre65.6cm/sPV Peak Grad.3mmHg Tricuspid Valve TR Peak Aufwazcr959jl/sRAP [id number] Peak Gr.38mmHg [id number] LEFT VENTRICLE The left ventricle is normal size. There is normal left ventricular wall thickness. The left ventricular function is normal. The left ventricular ejection fraction is within the normal range. There is normal LV segmental wall motion. RIGHT VENTRICLE The right ventricle is normal size. ATRIA The left atrium is mildly dilated. The right atrium is mildly dilated. The interatrial septum is intact with no evidence for an atrial septal defect. AORTIC VALVE The aortic valve is normal in structure. MITRAL VALVE The mitral valve is normal in structure. Mitral regurgitation is trace. TRICUSPID VALVE The tricuspid valve is normal in structure. There is mild to moderate tricuspid regurgitation. There is mild-moderate pulmonary hypertension. PULMONIC VALVE The pulmonary valve is normal in structure. GREAT VESSELS The aortic root is normal in size. PERICARDIAL EFFUSION There is no pericardial effusion. <Conclusion> The left ventricle is normal size. There is normal left ventricular wall thickness. The left ventricular ejection fraction is within the normal range. There is mild to moderate tricuspid regurgitation. Mitral regurgitation is trace. There is mild-moderate pulmonary hypertension.
[2017-09-12] MEDS: Potassium Chloride 20 mEq ER Tab PO SCH (09:46)
[2017-09-12] MEDS: Levothyroxine 100 MCG TAB PO SCH (09:50)
--- NOTE | 2017-09-12 15:16 | DS ---
HISTORY OF PRESENT ILLNESS: The patient is 62 years old, seen and examined, doing well, little sad about her diagnosis. Denies any nausea, vomiting or diarrhea. Complaining of mild shortness of breath, but much better than before. PHYSICAL EXAMINATION: VITAL SIGNS: The patient is afebrile, pulse 62, respirations 20, blood pressure 122/68. LUNGS: Bilateral fair airflow. No rhonchi or crackle. HEART: S1 and S2 audible. ABDOMEN: Soft, obese, nontender. No rebound. No guarding. NEUROLOGIC: The patient is awake, alert, oriented, communicative, ambulatory. LABORATORY DATA: WBC 3.3, hemoglobin 9.9, hematocrit 31.5, platelet of 118. PT 21.9, INR 1.96. Chemistry: Sodium 141, potassium 3.6, chloride 106, CO2 of 27, BUN 15, creatinine 0.9, blood sugar of 108. LFTs are within normal limit. TSH is 5.62. She had abdominal sonogram done that shows hepatosplenomegaly. ASSESSMENT: 1. Exertional dyspnea. 2. History of pulmonary embolism. 3. Newly diagnosed non-Hodgkin lymphoma. 4. Mild tricuspid regurgitation. 5. Symptomatic anemia. 6. Pancytopenia. 7. Hypothyroidism. PLAN: Discuss with Dr. Crawford. The patient was given 2 options, either she can stay here and have Port-A-Cath placed on Thursday or she can go home and be off of Coumadin and we will arrange for Port-A-Cath placement on Thursday or Thursday and then we will monitor her PT/INR as outpatient, so she chose the option to go home and will have that done. She did not want to stay another day to have Port-A-Cath placed on Thursday, so she is being discharge. She will continue her Lovenox twice a day at home. Maximo Pinedo MD
== END 2017-09-12 13:18 | disposition home or self-care (01) | DRG 809 ==
LOC: ED 18:13 → ERH 23:26 → 3RSO 09-10 00:30 → OBSVTOIN 09-11 16:04
PROVIDERS: ADMIT Internal Medicine; ATTEND Internal Medicine
PROC: 30233N1 Transfusion of Nonautologous Red Blood Cells into Peripheral Vein, Percutaneous Approach (ICD-10-PCS; principal; 2017-09-10)
DX: D61.818 Other pancytopenia (principal); C85.87 Other specified types of non-Hodgkin lymphoma, spleen; D68.59 Other primary thrombophilia; Z68.42 Body mass index [BMI] 45.0-49.9, adult; I07.1 Rheumatic tricuspid insufficiency; I48.0 Paroxysmal atrial fibrillation; I10 Essential (primary) hypertension; G43.909 Migraine, unspecified, not intractable, without status migrainosus; R16.2 Hepatomegaly with splenomegaly, not elsewhere classified; E03.9 Hypothyroidism, unspecified; K21.9 Gastro-esophageal reflux disease without esophagitis; H26.9 Unspecified cataract; I45.10 Unspecified right bundle-branch block; E66.9 Obesity, unspecified; Z86.718 Personal history of other venous thrombosis and embolism; Z86.711 Personal history of pulmonary embolism; Z79.01 Long term (current) use of anticoagulants; Z79.899 Other long term (current) drug therapy; Z88.3 Allergy status to other anti-infective agents

== ENCOUNTER 2017-09-18 07:17 | Day surgery (SDC) | payer BC, OTHER ==
[2017-09-17 08:41] VITALS: BMI 47.7
[2017-09-18 08:06] LABS: BASO # 0.02 K/mm3 (0.0-2.0); BASO % 0.5 % (0.0-3.0); EOS % 1.1 % (1.5-5.0); GRAN # 1.99 (1.4-6.5); GRAN % 52.6 % (50.0-68.0); HEMATOCRIT 34.2 % (36.0-48.0); LYMPH # 1.3 (1.2-3.4); LYMPH % 34.4 % (22.0-35.0); MEAN CELL VOLUME 94.7 fl (80.0-105.0); MEAN CORPUSCULAR HEMOGLOBIN 29.6 pg (25.0-35.0); MEAN CORPUSCULAR HGB CONC 31.3 g/dl (31.0-37.0); MEAN PLATELET VOLUME 9.7 fl (7.0-11.0); MONO # 0.4 (0.1-0.6); MONO % 11.4 % (1.0-6.0); RED CELL DISTRIBUTION WIDTH 16.6 % (11.5-14.5); WHITE BLOOD COUNT 3.8 10^3/ul (4.5-11.0)
[2017-09-18 08:20] VITALS: TEMP 98.1
[2017-09-18 08:20] LABS: INR 1.23 (0.93-1.08); PARTIAL THROMBOPLASTIN TIME 23.8 Seconds (25.1-36.5)
[2017-09-18 08:36] LABS: BLOOD UREA NITROGEN 19 mg/dL (7-21); CALCIUM 9.6 mg/dL (8.4-10.5); CARBON DIOXIDE 26 mmol/L (21-33); CHLORIDE 108 mmol/L (98-107); GFR AFRICAN-AMERICAN > 60; GLUCOSE,RANDOM 110 mg/dL (70-110); POTASSIUM 3.9 mmol/L (3.6-5.0); SODIUM 142 mmol/L (132-148)
[2017-09-18] MEDS ORDERED: Lidocaine 2% Inj (20ml) ONE (08:45)
[2017-09-18] MEDS ORDERED: Midazolam 2 MG/2 ML VIAL ONE ×2 (08:46→09:36)
[2017-09-18] MEDS ORDERED: Vancomycin 500 mg (Oral/Rectal USE) ONE (08:46)
[2017-09-18] MEDS ORDERED: Oxycodone/Acetaminophen 5/325 mg Tab PO PRN (11:01)
[2017-09-18] MEDS ORDERED: Sodium Chloride 0.45% 1,000 ML IV SCH (11:15)
[2017-09-18 11:41] VITALS: RESP 18; O2SAT 95
[2017-09-18 12:15] VITALS: BP 101/57; PULSE 70
--- NOTE | 2017-09-18 20:36 | VASCULAR ---
PROCEDURE: Ultrasound and fluoroscopic right internal jugular venous access port. CLINICAL HISTORY: Abdominal lymphoma.Venous port for chemotherapy. PHYSICIAN(S): Pasquale Ventura M.D. TECHNIQUE: The relative risks and indications of the procedure were explained to the patient and consent obtained. The patient was placed supine on the arteriogram table and the right neck and chest prepped and draped in the usual sterile fashion. Conscious sedation monitoring was provided throughout the procedure by a nurse. Antibiotics were given prior to the procedure. Under direct ultrasound guidance, the right internal jugular vein was punctured with a micro-puncture set. A 0.035 angled Glidewire was advanced into the IVC. A 4 cm incision was made over the right clavicle and the pocket blunted dissected. A 8 Pakistani single-lumen catheter, 22 cm long, was advanced to the SVC/RA junction. The catheter was trimmed and attached to the port. The port aspirates and injects easily. The port was placed in the pocket and closed in 2 layers. The patient tolerated the procedure well. IMPRESSION: Ultrasound and fluoroscopically placed right internal jugular venous access port.
== END 2017-09-18 13:20 | disposition home or self-care (01) ==
LOC: SDSVAS 07:17
PROVIDERS: ATTEND Radiology Vascular & Interventional Radiology
DX: C85.93 Non-Hodgkin lymphoma, unspecified, intra-abdominal lymph nodes (principal)
CPT/HCPCS: 36415; 36561; 76937; 77001; 80048; 85025; 85610; 85730; 99152; 99153; C1769; C1788; J0690; J1644; J2250; J2405; J3010; J7030 ×2

== ENCOUNTER 2017-09-23 15:13 | Emergency (ER) | payer BC, OTHER ==
[2017-09-23 15:29] VITALS: TEMP 99; O2SAT 98; BMI 47.1
--- NOTE | 2017-09-23 15:48 | ED PDOC ---
Arrival/HPI - General Time Seen by Provider: 09/23/17 15:17 Historian: Patient - History of Present Illness Narrative History of Present Illness (Text): 09/23/17 15:40 62yo female with PMhx of Lymphoma, pulmonary emolism, anemia who present with complaint of SOB. She notes ALVAREZ with any acitivty. worsenign for the past 3days. Notes she had similar symptoms last week and at that time had to be transfused 3units of blood for anemia. She denies LE edema, chest pain, dizziness, focal weakness, fever, cough, orthopnea. Past Medical History - Provider Review Nursing Documentation Reviewed: Yes - Infectious Disease Hx of Infectious Diseases: None - Cardiac Hx Pacemaker: No - Pulmonary Hx Respiratory Disorders: Yes - Neurological Hx Paralysis: No - HEENT Hx HEENT Disorder: Yes Hx Cataracts: Yes (Cataract sx) - Renal Hx Renal Disorder: No - Endocrine/Metabolic Hx Hypothyroidism: Yes - Hematological/Oncological Hx Blood Transfusions: No - Integumentary Hx Dermatological Disorder: No - Musculoskeletal/Rheumatological Hx Musculoskeletal Disorders: No - Gastrointestinal Hx Gastrointestinal Disorders: Yes Hx Gastroesophageal Reflux: Yes - Genitourinary/Gynecological Hx Genitourinary Disorders: No - Psychiatric Hx Emotional Abuse: No Hx Physical Abuse: No Hx Substance Use: No - Surgical History Hx Cholecystectomy: Yes - Anesthesia Hx Anesthesia Reactions: No Hx Malignant Hyperthermia: No - Suicidal Assessment Feels Threatened In Home Enviroment: No Family/Social History - Physician Review Nursing Documentation Reviewed: Yes Family/Social History: Unknown Family HX Smoking Status: Never Smoked Hx Alcohol Use: No Hx Substance Use: No Hx Substance Use Treatment: No Allergies/Home Meds Allergies/Adverse Reactions: Allergies erythromycin base Allergy (Severe, Verified 09/23/17 18:30) URTICARIA Home Medications: Home Meds Medication Instructions Recorded Confirmed Metoprolol Succinate [Toprol XL] 100 mg PO QAM 03/10/12 09/23/17 Levothyroxine [Synthroid] 150 mcg PO DAILY 06/23/16 09/23/17 Cyanocobalamin (Vitamin B-12) 100 mcg PO DAILY 07/09/16 09/23/17 [Vitamin B-12] Folic Acid 1 mg PO DAILY 07/09/16 09/23/17 Metoprolol Succinate [Toprol XL] 50 mg PO HS 07/09/16 09/23/17 Pantoprazole Sodium [Protonix] 40 mg PO DAILY 07/08/17 09/23/17 hydroCHLOROthiazide [Microzide] 12.5 mg PO DAILY 07/08/17 09/23/17 Enoxaparin [Lovenox] 100 mg SQ BID 09/17/17 09/23/17 PrednisoLONE 1% [Prednisolone 1 drop RIGHTEYE BID 09/17/17 09/23/17 Acetate 5 Ml] Review of Systems - Physician Review All systems were reviewed & negative as marked: Yes - Review of Systems Constitutional: Fatigue Eyes: Normal ENT: Normal Respiratory: SOB. absent: Cough, Sputum, Wheezing Cardiovascular: Normal Gastrointestinal: Normal Genitourinary Female: Normal Musculoskeletal: Normal Skin: Normal Neurological: Normal Endocrine: Normal Hemo/Lymphatic: Normal Psychiatric: Normal Physical Exam Vital Signs Reviewed: Yes Vital Signs Temp Pulse Resp BP Pulse Ox 09/23/17 21:06 82 18 106/81 98 09/23/17 18:27 86 21 112/67 98 09/23/17 15:45 22 09/23/17 15:22 99.0 F 86 22 109/54 L 98 Temperature: Afebrile Blood Pressure: Normal Pulse: Regular Respiratory Rate: Normal Appearance: Positive for: Well-Appearing, Non-Toxic, Comfortable Pain Distress: None Mental Status: Positive for: Alert and Oriented X 3 - Systems Exam Head: Present: Atraumatic, Normocephalic Pupils: Present: PERRL Extroacular Muscles: Present: EOMI Conjunctiva: Present: Normal Mouth: Present: Moist Mucous Membranes Neck: Present: Normal Range of Motion Respiratory/Chest: Present: Clear to Auscultation, Good Air Exchange. No: Respiratory Distress, Accessory Muscle Use, Wheezes, Decreased Breath Sounds, Rales, Retracting, Rhonchi Cardiovascular: Present: Regular Rate and Rhythm, Normal S1, S2. No: Murmurs Abdomen: Present: Normal Bowel Sounds. No: Tenderness, Distention, Peritoneal Signs Back: Present: Normal Inspection Upper Extremity: Present: Normal Inspection. No: Cyanosis, Edema Lower Extremity: Present: Normal Inspection. No: Edema Neurological: Present: GCS=15, CN II-XII Intact, Speech Normal Skin: Present: Warm, Dry, Normal Color. No: Rashes Psychiatric: Present: Alert, Oriented x 3, Normal Insight, Normal Concentration Medical Decision Making ED Course and Treatment: 09/23/17 23:13 PT presented for stated history. She was hemodynamically stable in ED. Her Lab was unremarkable. Elevated D dimer was noted and CT angio was ordered CT angio IMPRESSION: 1. There is no acute central pulmonary embolism. Evaluation of the peripheral pulmonary arteries for emboli is suboptimal due to artifact. If further evaluation is clinically indicated, a VQ scan is recommended. 2. There are low lung volumes bilaterally. 3. There are scattered bands of atelectatic change or parenchymal scarring within the right lung. Patchy groundglass density is seen within both lower lobes. Additional atelectatic changes are seen within the left lung. 4. Within the left upper lobe on series 3 image 90, there is a 2 mm nodule which is stable. A follow-up CT in 9-12 months is suggested. 5. Hepatomegaly. 6. There is mild enlargement of the left atrium of the heart, similar to the prior study. Dictated By: Sanford Cohen MD, MD Dictated Date/Time: 09/23/172021 Signed By: Sanford Carranza MD EKG NSR with incomplete RBBB @84bpm On re evaluation pt notes that her Dyspnea resolved. she asked to be DC home . She was noted ambulating in ED without distress. Her lung was CTA b/l. Dr. Crawford s service was called without a call back. Pt was DC home and advised to f/u with her PMD. TRT ED for any new or worsening symptom. - Lab Interpretations Lab Results: 09/23/17 16:50 09/23/17 16:50 Lab Results 09/23/17 20:30: Urine Color Yellow, Urine Appearance Clear, Urine pH 6.0, Ur Specific [place] <= 1.005, Urine Protein Negative, Urine Glucose (UA) Negative, Urine Ketones Negative, Urine Blood Negative, Urine Nitrate Negative, Urine Bilirubin Negative, Urine Urobilinogen 0.2, Ur Leukocyte Esterase Negative 09/23/17 16:50: Sodium 140, Chloride 103, Potassium 4.3, Carbon Dioxide 29, Anion Gap 13, BUN 16, Creatinine 1.0, Est GFR ( Amer) > 60, Est GFR (Non- Af Amer) 56, Random Glucose 101, Calcium 9.5, Total Bilirubin 1.2, AST 29, ALT 30, Alkaline Phosphatase 88, Lactate Dehydrogenase 1126 H, Total Creatine Kinase 35, Troponin I < 0.01, NT-Pro-B Natriuret Pep 103, Total Protein 6.8, Albumin 3.9, Globulin 2.9, Albumin/Globulin Ratio 1.3 09/23/17 16:50: pO2 33, VBG pH 7.35, VBG pCO2 54.0, VBG HCO3 29.8 H, VBG Total CO2 31.5 H, VBG O2 Sat (Calc) 68.2 H, VBG Base Excess 2.9 H, VBG Potassium 4.1, Sodium 139.0, Chloride 104.0, Glucose 100, Lactate 1.4, FiO2 21.0, Venous Blood Potassium 4.1 09/23/17 16:50: PT 13.2 H, INR 1.21 H, APTT 32.3, D-Dimer, Quantitative 489 H 09/23/17 16:50: WBC 3.4 L, RBC 3.26 L, Hgb 9.7 L, Hct 30.6 L, MCV 93.9, MCH 29.8 , MCHC 31.7, RDW 16.7 H, Plt Count 134, MPV 9.4, Gran % 48.8 L, Lymph % (Auto) 33.3, [place] % (Auto) 16.1 H, Eos % (Auto) 1.5, Baso % (Auto) 0.3, Gran # 1.67, Lymph # 1.1 L, [place] # 0.6, Eos # 0.1, Baso # 0.01 09/23/17 16:30: Blood Type A POSITIVE, Antibody Screen Negative, BBK History Checked Patient has bt - RAD Interpretation Radiology Orders: 09/23/17 15:30 CHEST PORTABLE [RAD] Stat 09/23/17 18:23 ANGIO CHEST PE PROTOCOL [CT] Stat Disposition/Present on Arrival - Present on Arrival Any Indicators Present on Arrival: No History of DVT/PE: Yes History of Uncontrolled Diabetes: No Urinary Catheter: No History Surgical Site Infection Following: None - Disposition Have Diagnosis and Disposition been Completed?: Yes Diagnosis: SOB (shortness of breath), Anemia Disposition: HOME/ ROUTINE Disposition Time: 20:40 Patient Plan: Discharge Condition: STABLE Discharge Instructions (ExitCare): Dyspnea (ED) Additional Instructions: Follow up with your doctor Return to ED for any new or worsening symptoms Referrals: Jolie Monge MD [Primary Care Provider] - Follow up with primary Forms: [employer] (Albanian)
[2017-09-23 17:15] LABS: BASO # 0.01 K/mm3 (0.0-2.0); BASO % 0.3 % (0.0-3.0); EOS # 0.1 (0.0-0.7); EOS % 1.5 % (1.5-5.0); GRAN # 1.67 (1.4-6.5); GRAN % 48.8 % (50.0-68.0); HEMATOCRIT 30.6 % (36.0-48.0); LYMPH # 1.1 (1.2-3.4); LYMPH % 33.3 % (22.0-35.0); MEAN CELL VOLUME 93.9 fl (80.0-105.0); MEAN CORPUSCULAR HEMOGLOBIN 29.8 pg (25.0-35.0); MEAN CORPUSCULAR HGB CONC 31.7 g/dl (31.0-37.0); MEAN PLATELET VOLUME 9.4 fl (7.0-11.0); MONO # 0.6 (0.1-0.6); MONO % 16.1 % (1.0-6.0); RED CELL DISTRIBUTION WIDTH 16.7 % (11.5-14.5); VENOUS BLOOD GAS BASE EXCESS 2.9 mmol/L (0.0-2.0); VENOUS BLOOD PH 7.35 (7.32-7.43); WHITE BLOOD COUNT 3.4 10^3/ul (4.5-11.0)
[2017-09-23 17:21] LABS: INR 1.21 (0.93-1.08); PARTIAL THROMBOPLASTIN TIME 32.3 Seconds (25.1-36.5)
[2017-09-23 17:23] LABS: ALB/GLOB RATIO 1.3 (1.1-1.8); ALKALINE PHOSPHATASE 88 U/L (38-126); ALT/SGPT 30 U/L (7-56); AST/SGOT 29 U/L (14-36); BILIRUBIN,TOTAL 1.2 mg/dL (0.2-1.3); BLOOD UREA NITROGEN 16 mg/dL (7-21); CALCIUM 9.5 mg/dL (8.4-10.5); CARBON DIOXIDE 29 mmol/L (21-33); CHLORIDE 103 mmol/L (98-107); GFR AFRICAN-AMERICAN > 60; GLUCOSE,RANDOM 101 mg/dL (70-110); POTASSIUM 4.3 mmol/L (3.6-5.0); SODIUM 140 mmol/L (132-148); TOTAL PROTEIN 6.8 g/dL (5.8-8.3)
[2017-09-23 17:32] LABS: TROPONIN I < 0.01 ng/mL
--- NOTE | 2017-09-23 18:15 | RAD ---
HISTORY: Shortness of breath COMPARISON: 09/09/2017 FINDINGS: The right central venous catheter terminates in the SVC. LUNGS: The lungs are well inflated. There is mild pulmonary venous congestion. No focal consolidation. PLEURA: No significant pleural effusion identified, no pneumothorax apparent. CARDIOVASCULAR: Normal. OSSEOUS STRUCTURES: No significant abnormalities. VISUALIZED UPPER ABDOMEN: Normal. OTHER FINDINGS: None. IMPRESSION: Right central venous catheter terminates in the SVC. Mild pulmonary venous congestion. No active pulmonary disease.
[2017-09-23] MEDS ORDERED: Iohexol 350 MG/100 ML VIAL ONE (18:35)
--- NOTE | 2017-09-23 19:39 | CARD ---
APPROVED REPORT EKG Measurement Heart [id number] OR [id number] <Conclusion> Normal sinus rhythm Incomplete right bundle branch block Voltage criteria for left ventricular hypertrophy Abnormal ECG
--- NOTE | 2017-09-23 20:22 | CT ---
EXAM: CT Angiography Chest With Intravenous Contrast EXAM DATE/TIME: 09/23/2017 6:23 PM CLINICAL HISTORY: The patient age is 62 years old and is female; Signs and symptoms; Shortness of breath; Additional info: [facility] [place] Facility exam id and description: Ct formerly [facility] angio chest pe protocol TECHNIQUE: Axial computed tomographic angiography images of the chest with intravenous contrast using pulmonary embolism protocol. All CT scans at this facility use one or more dose reduction techniques, viz.: automated exposure control; ma/kV adjustment per patient size (including targeted exams where dose is matched to indication; i.e. head); or iterative reconstruction technique. MIP reconstructed images were created and reviewed. Coronal and sagittal reformatted images were created and reviewed. CONTRAST: 92 mL of OMNI 350 administered intravenously. COMPARISON: CT - ANGIO CHEST PE PROTOCOL 2017-09-09 20:52 FINDINGS: Pulmonary arteries: There is no acute central pulmonary embolism. Evaluation of the peripheral pulmonary arteries for emboli is suboptimal due to artifact. Aorta: No acute findings. No thoracic aortic aneurysm. Inferior vena cava: The suprahepatic IVC is dilated. Lungs: There are low lung volumes bilaterally. There are scattered bands of atelectatic change or parenchymal scarring within the right lung. Patchy groundglass density is seen within both lower lobes. Additional atelectatic changes are seen within the left lung. Within the left upper lobe on series 3 image 90, there is a 2 mm nodule which is stable. No lung mass is visualized. Pleural space: No significant effusion. No pneumothorax. Heart: There is mild enlargement of the left atrium of the heart, similar to the prior study. Bones/joints: Hypertrophic degenerative changes are noted within the spine. There is mild convexity of the mid thoracic spine to the right. Lymph nodes: No enlarged mediastinal or hilar lymph nodes. Liver: The liver is partially visualized although appears enlarged. Gallbladder and bile ducts: Cholecystectomy clips are identified. Spleen: The spleen measures 16.6 cm in AP dimension, consistent with splenomegaly. Tubes, lines and devices: A right-sided Port-A-Cath is visualized. IMPRESSION: 1. There is no acute central pulmonary embolism. Evaluation of the peripheral pulmonary arteries for emboli is suboptimal due to artifact. If further evaluation is clinically indicated, a VQ scan is recommended. 2. There are low lung volumes bilaterally. 3. There are scattered bands of atelectatic change or parenchymal scarring within the right lung. Patchy groundglass density is seen within both lower lobes. Additional atelectatic changes are seen within the left lung. 4. Within the left upper lobe on series 3 image 90, there is a 2 mm nodule which is stable. A follow-up CT in 9-12 months is suggested. 5. Hepatomegaly. 6. There is mild enlargement of the left atrium of the heart, similar to the prior study.
[2017-09-23 20:37] LABS: URINE BILIRUBIN NEGATIVE (NEGATIVE); URINE BLOOD NEGATIVE (NEGATIVE); URINE GLUCOSE (UA) NEGATIVE (NEGATIVE); URINE KETONE NEGATIVE (NEGATIVE); URINE LEUKOCYTE ESTERASE NEGATIVE Leu/uL (NEGATIVE); URINE PROTEIN NEGATIVE mg/dL (<30 mg/dL); URINE UROBILINOGEN 0.2 E.U./dL (<1 E.U./dL)
[2017-09-23 20:56] LABS: URINE APPEARANCE CLEAR (CLEAR); URINE COLOR YELLOW (YELLOW)
[2017-09-23 21:09] VITALS: BP 106/81; PULSE 82; RESP 18
== END 2017-09-23 21:08 | disposition home or self-care (01) ==
LOC: ED 15:13
DX: R06.02 Shortness of breath (principal); D64.9 Anemia, unspecified
CPT/HCPCS: 71010; 71275; 80053; 81003; 82550; 82803; 83615; 83880; 84484; 85025; 85378; 85610; 85730; 86850; 86900; 93005; 99283; Q9967

== ENCOUNTER 2017-09-25 05:59 | Day surgery (SDC) | payer BC, OTHER ==
[2017-09-24 13:45] VITALS: BMI 47.0
[2017-09-25] MEDS ORDERED: Lidocaine 1% Inj (20ml) ONE ×2 (07:46→07:49)
[2017-09-25] MEDS ORDERED: Propofol 10 mg/ml Inj (20 ML) ONE ×2 (07:47→08:01)
[2017-09-25] MEDS ORDERED: Sodium Chloride 0.9% 1,000 ML IV SCH (08:30)
[2017-09-25 09:36] VITALS: PULSE 76; RESP 18; TEMP 98
--- NOTE | 2017-09-25 10:51 | PROCN ---
DATE: 09/25/2017 PROCEDURE: Bone marrow aspiration, bone marrow biopsy. ANESTHESIA: 1% lidocaine. PROCEDURE: Written consent was obtained after explaining the procedure. The patient signed the consent. She was laid in left lateral position, cleaning and draping done on the right iliac crest. Bone marrow aspiration done with Jamshidi needle under all aseptic conditions. Anesthesia was by 1% lidocaine, conscious sedation with oil house attendant. Bone marrow biopsy sample obtained with the separate bone marrow puncture site with Jamshidi needle. Adequate specimen was obtained. Thin slides made bedside of bone marrow. Studies sent for flow cytogenetics and molecular biology. No complications obtained, no bleeding. A sterile dressing placed. Complications none. Discharge instructions given. Belia Crawford MD
[2017-09-25 11:09] VITALS: BP 103/54; O2SAT 97
--- NOTE | 2017-09-25 11:09 | HP ---
HISTORY OF PRESENT ILLNESS: Ms. Carlson is a 62-year-old female, admitted to same day surgery for bone marrow aspiration biopsy and conscious sedation. 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 She has been in ER recently with fatigue and shortness of breath. A CT chest was negative for recurrence of PE. Her hemoglobin has been stable at 9.4. Complaining of pain at port site on the right side of the chest. PAST SURGICAL HISTORY: Port placement. ALLERGIES: ERYTHROMYCIN. FAMILY HISTORY: Noncontributory. PERSONAL HISTORY: Nonsmoker. No history of alcohol abuse. SOCIAL HISTORY: Lives at home with her . REVIEW OF SYSTEMS: As per HPI. A 12-point review of system reviewed and negative. PHYSICAL EXAMINATION: GENERAL: Comfortable in bed, in no acute distress. VITAL SIGNS: Stable, temperature is 98.7, heart rate is 80 per minute, blood pressure is 100/60, respiratory rate is 18 per minute, and pulse oximetry is 96% on room air. HEENT: Normal, pallor positive. NECK: No lymphadenopathy. CHEST: Air entry present and equal bilateral. No added sounds. CARDIOVASCULAR: S1 and S2 normal. No murmur and no gallop. ABDOMEN: Soft and nontender. No hepatosplenomegaly. EXTREMITIES: No edema. CENTRAL NERVOUS SYSTEM: Alert and oriented x3. No focal, sensory or motor deficit. Chest wall right-sided small unhealed wound from the port site. CURRENT MEDICATIONS: Lovenox 100 mg subcutaneously b.i.d., Lovenox is on hold. IV fluid at 80 mL an hour. LABORATORY DATA: No current labs. CBC done two days ago white count of 3.8, hemoglobin of 9.4, and creatinine is 0.1. D-dimer is elevated. ASSESSMENT: 1. Recent diagnosis of non-Hodgkin's lymphoma splenic marginal zone. 2. Hypercoagulable state. 3. Bilateral pulmonary embolism, currently on anticoagulation. 4. Anemia. 5. Leukopenia. PLAN: She will undergo bone marrow aspiration biopsy under conscious sedation for reevaluation of marginal zone lymphoma. There is a concern of conversion to aggressive lymphoma. Repeat PET scan showed positivity only in the spleen. No additional lymphadenopathy and PET positive was identified. She signed a written consent for bone marrow aspiration biopsy. She will continue Lovenox 100 mg b.i.d. until she has seen in office on Thursday. Start Coumadin 10 mg daily for three days starting to night and then resume 4 mg daily. Discuss at length results of PET scan. Follow up appointment given in the office. Discussed with the staff nurse. Belia Crawford MD
== END 2017-09-25 11:10 | disposition home or self-care (01) ==
LOC: SDS 05:59
PROVIDERS: ATTEND Internal Medicine Medical Oncology
DX: C85.87 Other specified types of non-Hodgkin lymphoma, spleen (principal); D61.818 Other pancytopenia; D68.59 Other primary thrombophilia; Z86.711 Personal history of pulmonary embolism; Z79.01 Long term (current) use of anticoagulants
CPT/HCPCS: 38221; J2704; J3010; J7040; J7120

== ENCOUNTER 2018-02-17 10:54 | Day surgery (SDC) | payer BC, OTHER ==
[2018-02-10 13:17] VITALS: BMI 48.6
[2018-02-17 11:37] LABS: INR 1.04 (0.93-1.08); PARTIAL THROMBOPLASTIN TIME 27.5 Seconds (25.1-36.5)
[2018-02-17] MEDS ORDERED: Lactated Ringer's 1,000 ML IV SCH (13:00)
[2018-02-17] MEDS ORDERED: Lidocaine 1% Inj (20ml) IJ ONE (13:10)
[2018-02-17] MEDS ORDERED: Lidocaine 1% Inj (20ml) ONE (13:10)
[2018-02-17] MEDS ORDERED: Propofol 10 mg/ml Inj (20 ML) ONE (13:12)
[2018-02-17 14:09] VITALS: RESP 18
[2018-02-17 14:28] VITALS: TEMP 97.7; O2SAT 97
[2018-02-17 14:54] VITALS: BP 113/68; PULSE 70
== END 2018-02-17 15:50 | disposition home or self-care (01) ==
LOC: SDS 10:54
PROVIDERS: ATTEND Internal Medicine Medical Oncology
DX: C88.4 Extranodal marginal zone B-cell lymphoma of mucosa-associated lymphoid tissue [MALT-lymphoma] (principal); C83.80 Other non-follicular lymphoma, unspecified site; Z92.21 Personal history of antineoplastic chemotherapy
CPT/HCPCS: 36415; 38220; 85610; 85730; J2001; J2704; J7120 ×2

== ENCOUNTER 2018-04-01 09:31 | Emergency (ER) | payer BC, OTHER ==
[2018-04-01 11:00] VITALS: BMI 47.0
[2018-04-01 11:04] VITALS: RESP 18; O2SAT 98
[2018-04-01] MEDS ORDERED: Famotidine 20mg/50ml 20 MG/50 ML BAG IVPB STA (11:34)
--- NOTE | 2018-04-01 11:48 | ED PDOC ---
Arrival/HPI - General Chief Complaint: Weakness/Neurological Deficit Time Seen by Provider: 04/01/18 11:16 Historian: Patient - History of Present Illness Narrative History of Present Illness (Text): 04/01/18 11:42 62 year old female, whose past medical history includes lymphoma (last chemotherapy finished on February 03 2018), a cholecystectomy, who presents to the emergency department complaining of nausea and vomiting since this morning. Patient notes she had several episodes of vomiting. Patient notes generalized weakness and right flank pain. Patient takes Cumaden for PE and DVT. Patient denies any sick contacts, ingestion of old food, fever, chills, chest pain, shortness of breath, diarrhea, urinary symptoms, back pain, neck pain, headache , dizziness, or any other complaints. Time/Duration: 4-6 hours Symptom Onset: Sudden Symptom Course: Unchanged Activities at Onset: Light Context: Home Past Medical History - Provider Review Nursing Documentation Reviewed: Yes - Infectious Disease Hx of Infectious Diseases: None - Cardiac Hx Pacemaker: No - Pulmonary Hx Respiratory Disorders: Yes - Neurological Hx Paralysis: No - HEENT Hx HEENT Disorder: Yes Hx Cataracts: Yes (Cataract sx) - Renal Hx Renal Disorder: No - Endocrine/Metabolic Hx Hypothyroidism: Yes - Hematological/Oncological Hx Blood Transfusions: Yes Hx Blood Transfusion Reaction: No - Integumentary Hx Dermatological Disorder: No - Musculoskeletal/Rheumatological Hx Musculoskeletal Disorders: No - Gastrointestinal Hx Gastrointestinal Disorders: Yes Hx Gastroesophageal Reflux: Yes - Genitourinary/Gynecological Hx Genitourinary Disorders: No - Psychiatric Hx Emotional Abuse: No Hx Physical Abuse: No Hx Substance Use: No - Surgical History Hx Cholecystectomy: Yes - Anesthesia Hx Anesthesia Reactions: No Hx Malignant Hyperthermia: No - Suicidal Assessment Feels Threatened In Home Enviroment: No Family/Social History - Physician Review Nursing Documentation Reviewed: Yes Family/Social History: Unknown Family HX Smoking Status: Never Smoked Hx Alcohol Use: No Hx Substance Use: No Hx Substance Use Treatment: No Allergies/Home Meds Allergies/Adverse Reactions: Allergies erythromycin base Allergy (Severe, Verified 04/01/18 11:01) URTICARIA Home Medications: Home Meds Medication Instructions Recorded Confirmed Metoprolol Succinate XL [Toprol XL] 100 mg PO QAM 03/10/12 02/17/18 Levothyroxine [Synthroid] 150 mcg PO DAILY 06/23/16 02/17/18 Cyanocobalamin (Vitamin B-12) 100 mcg PO DAILY 07/09/16 02/17/18 [Vitamin B-12] Folic Acid 1 mg PO DAILY 07/09/16 02/17/18 Pantoprazole Sodium [Protonix] 40 mg PO DAILY 07/08/17 02/17/18 hydroCHLOROthiazide [Microzide] 12.5 mg PO DAILY 07/08/17 02/17/18 PrednisoLONE 1% [Prednisolone 1 drop RIGHTEYE BID 09/17/17 02/17/18 Acetate 5 Ml] Warfarin [Coumadin] 4 mg PO DAILY 09/25/17 02/12/18 Metoprolol Succinate [Metoprolol 50 mg PO QPM 02/09/18 02/17/18 Succinate] valACYclovir [Valtrex] 500 tab PO DAILY 02/09/18 02/17/18 Enoxaparin [Lovenox] 100 mg SC BID 02/12/18 02/17/18 Review of Systems - Physician Review All systems were reviewed & negative as marked: Yes - Review of Systems Constitutional: Normal Eyes: Normal ENT: Normal Respiratory: Normal. absent: SOB, Cough Cardiovascular: Normal. absent: Chest Pain Gastrointestinal: Nausea, Vomiting. absent: Abdominal Pain Genitourinary Female: Normal. absent: Dysuria, Frequency, Hematuria Musculoskeletal: Back Pain (rt flank pain ). absent: Neck Pain Skin: Normal. absent: Rash Neurological: Normal. absent: Headache, Dizziness Endocrine: Normal Hemo/Lymphatic: Normal Psychiatric: Normal Physical Exam Vital Signs Reviewed: Yes Vital Signs Temp Pulse Resp BP Pulse Ox 04/01/18 14:14 70 18 98 04/01/18 13:58 98.2 F 69 18 125/73 98 04/01/18 11:01 76 18 98 Pulse: Regular Respiratory Rate: Normal Appearance: Positive for: Well-Appearing, Non-Toxic, Comfortable Pain Distress: None Mental Status: Positive for: Alert and Oriented X 3 - Systems Exam Head: Present: Atraumatic, Normocephalic Pupils: Present: PERRL Extroacular Muscles: Present: EOMI Conjunctiva: Present: Normal Mouth: Present: Dry (slightly dry mucosa) Neck: Present: Normal Range of Motion Respiratory/Chest: Present: Clear to Auscultation, Good Air Exchange. No: Respiratory Distress, Accessory Muscle Use Cardiovascular: Present: Regular Rate and Rhythm, Normal S1, S2. No: Murmurs Abdomen: Present: Tenderness (mild diffuse ipper abdominal tenderness). No: Distention, Peritoneal Signs Back: Present: Normal Inspection. No: CVA Tenderness, Midline Tenderness Upper Extremity: Present: Normal Inspection. No: Cyanosis, Edema Lower Extremity: Present: Normal Inspection. No: Edema Neurological: Present: GCS=15, CN II-XII Intact, Speech Normal Skin: Present: Warm, Dry, Normal Color. No: Rashes Psychiatric: Present: Alert, Oriented x 3, Normal Insight, Normal Concentration Medical Decision Making ED Course and Treatment: 04/01/18 11:50 Impression: 62 year old female presents to the emergency department complaining of nausea and vomiting since this morning. Differential Diagnosis included but are not limited to: Gastroenteritis vs. Bowel Obstruction vs. Gastritis vs. Chemotherapy side effects vs. Electrolyte disorder vs. dehydration vs. cholitis Plan: -- Labs -- Troponin -- Pepsin -- Zofran -- Urinalysis -- Reassess and disposition Progress Notes: 04/01/18 13:37 Patient reassessed and feels better. Patient given PO challenge with PO magnesium. Pt has mild hypomagnesemia, which is chronic to pt. 04/01/18 22:34 pt is now tolerating PO well adn feels much better no signs of obstruction or colitis. Reassessment Condition: Re-examined, Improved - Lab Interpretations Lab Results: 04/01/18 11:17 04/01/18 11:17 Lab Results 04/01/18 11:36: PT 26.0 H, INR 2.22 H 04/01/18 11:17: Sodium 146, Potassium 4.0, Chloride 110 H, Carbon Dioxide 23, Anion Gap 17, BUN 17, Creatinine 0.7, Est GFR ( Amer) > 60, Est GFR (Non- Af Amer) > 60, Random Glucose 111 H, Calcium 9.3, Magnesium 1.5 L, Total Bilirubin 0.3, AST 32, ALT 47, Alkaline Phosphatase 88, Troponin I < 0.01, Total Protein 6.8, Albumin 4.2, Globulin 2.6, Albumin/Globulin Ratio 1.6, Lipase 190 04/01/18 11:17: WBC 9.8 D, RBC 4.04, Hgb 12.4 D, Hct 37.5, MCV 92.8, MCH 30.7 , MCHC 33.1, RDW 13.8, Plt Count 183, MPV 9.7, Gran % 84.9 H, Lymph % (Auto) 8.8 L, [place] % (Auto) 5.6, Eos % (Auto) 0.6 L, Baso % (Auto) 0.1, Gran # 8.33 H, Lymph # (Auto) 0.9 L, [place] # (Auto) 0.6, Eos # (Auto) 0.1, Baso # (Auto) 0.01 Interpretation: Abnormal lab values (mild hypomagnesemia) - Medication Orders Current Medication Orders: Discontinued Medications Famotidine (Pepcid 20mg/50ml Premix) 20 mg in 50 mls @ 100 mls/hr IVPB STAT STA Stop: 04/01/18 12:03 Last Admin: 04/01/18 12:05 Dose: 100 mls/hr eMAR Start Stop Document 04/01/18 12:05 [email or web address] (Rec: 04/01/18 12:06 [id number]) Intravenous Solution Start Date 04/01/18 Start Time 12:06 End Date 04/01/18 Loperamide HCl (Imodium) 4 mg PO ONCE ONE Stop: 04/01/18 13:05 Last Admin: 04/01/18 14:13 Dose: 4 mg Magnesium Oxide (Mag-Ox) 800 mg PO STAT STA Stop: 04/01/18 13:38 Last Admin: 04/01/18 13:46 Dose: 800 mg Ondansetron HCl (Zofran Inj) 4 mg IVP STAT STA Stop: 04/01/18 11:18 Last Admin: 04/01/18 12:05 Dose: 4 mg IVP Administration Document 04/01/18 12:05 [email or web address] (Rec: 04/01/18 12:05 CAST [id number]) Charges for Administration # of IVP Administrations 1 - PA / CHECK CLERK / Resident Statement MD/DO has reviewed & agrees with the documentation as recorded. - Scribe Statement The provider has reviewed the documentation as recorded by the Scribe Magda Fernandes All medical record entries made by the Scribe were at my direction and personally dictated by me. I have reviewed the chart and agree that the record accurately reflects my personal performance of the history, physical exam, medical decision making, and the department course for this patient. I have also personally directed, reviewed, and agree with the discharge instructions and disposition. Disposition/Present on Arrival - Present on Arrival Any Indicators Present on Arrival: Yes History of DVT/PE: Yes History of Uncontrolled Diabetes: No Urinary Catheter: No History of Decub. Ulcer: Yes History Surgical Site Infection Following: None - Disposition Have Diagnosis and Disposition been Completed?: Yes Diagnosis: Gastroenteritis, Hypomagnesemia Disposition: HOME/ ROUTINE Disposition Time: 13:50 Patient Plan: Discharge Condition: IMPROVED Discharge Instructions (ExitCare): Diarrhea in Adolescents and Adults Prescriptions: Ondansetron [Zofran] 4 mg PO Q8H PRN #12 tab PRN Reason: Nausea/Vomiting Referrals: Jolie Monge MD [Primary Care Provider] - Follow up with primary Forms: [employer] (E[place]ian)
[2018-04-01 12:15] LABS: BASO # 0.01 K/mm3 (0.0-2.0); BASO % 0.1 % (0.0-3.0); EOS # 0.1 (0.0-0.7); EOS % 0.6 % (1.5-5.0); GRAN # 8.33 (1.4-6.5); GRAN % 84.9 % (50.0-68.0); HEMOGLOBIN 12.4 g/dL (12.0-16.0); LYMPH # 0.9 (1.2-3.4); LYMPH % 8.8 % (22.0-35.0); MEAN CELL VOLUME 92.8 fl (80.0-105.0); MEAN CORPUSCULAR HEMOGLOBIN 30.7 pg (25.0-35.0); MEAN CORPUSCULAR HGB CONC 33.1 g/dl (31.0-37.0); MEAN PLATELET VOLUME 9.7 fl (7.0-11.0); MONO # 0.6 (0.1-0.6); MONO % 5.6 % (1.0-6.0); RBC 4.04 10^6/uL (3.5-6.1); RED CELL DISTRIBUTION WIDTH 13.8 % (11.5-14.5); WHITE BLOOD COUNT 9.8 10^3/ul (4.5-11.0)
[2018-04-01 12:21] LABS: ALB/GLOB RATIO 1.6 (1.1-1.8); ALBUMIN 4.2 g/dL (3.0-4.8); ALT/SGPT 47 U/L (7-56); AST/SGOT 32 U/L (14-36); BLOOD UREA NITROGEN 17 mg/dL (7-21); CALCIUM 9.3 mg/dL (8.4-10.5); GFR AFRICAN-AMERICAN > 60; GFR NON-AFRICAN AMERICAN > 60; LIPASE 190 U/L (23-300)
[2018-04-01 12:30] LABS: INR 2.22 (0.93-1.08)
[2018-04-01 12:32] LABS: TROPONIN I < 0.01 ng/mL
[2018-04-01] MEDS ORDERED: Loperamide Hydrochloride 1 mg/5 ml Cup PO ONE (13:04)
[2018-04-01] MEDS ORDERED: Magnesium Sulfate 1 gm in D5W 1 GM/100 ML BAG IVPB ONE (13:04)
[2018-04-01] MEDS ORDERED: Magnesium Oxide 400 mg Tab UD PO STA (13:37)
[2018-04-01 13:58] VITALS: BP 125/73; TEMP 98.2
[2018-04-01 14:15] VITALS: PULSE 70
== END 2018-04-01 14:15 | disposition home or self-care (01) ==
LOC: ED 09:31
DX: K52.9 Noninfective gastroenteritis and colitis, unspecified (principal); E83.42 Hypomagnesemia; K21.9 Gastro-esophageal reflux disease without esophagitis; Z90.49 Acquired absence of other specified parts of digestive tract
CPT/HCPCS: 80053; 83690; 83735; 84484; 85025; 85610; 96374; 99285; J2405; J7030

== ENCOUNTER 2018-08-18 14:13 | Observation (INO) | payer BC, OTHER ==
[2018-08-18] MEDS ORDERED: Sodium Chloride 0.9% 1,000 ML IV STA (14:35)
[2018-08-18 14:37] VITALS: BMI 48.5
--- NOTE | 2018-08-18 14:37 | ED PDOC ---
Arrival/HPI - General Chief Complaint: GI Problem Time Seen by Provider: 08/18/18 14:34 Historian: Patient - History of Present Illness Narrative History of Present Illness (Text): 08/18/18 14:41 63 y/o female with PMH of NHL (diagnosed 1 year ago, last chemo January 2018, in remission), Afib, PE/DVT, Morbid obesity, GERD, Hypothyroidism, cholecystectomy who presents to the ED c/o vomiting and diarrhea with mild left sided abdominal pain x 8 hours. Pt awoke at 7 am this morning with vomiting and has had several episodes of non-bloody vomit and diarrhea since that time. Abdominal pain is achy in her LUQ similar to her typical chronic splenic pain. Associated palpitations, chills, and lightheadedness. Pt having difficulty tolerating PO. Received the flu shot on Thursday. Denies recent antibiotic use, sick contacts, or eating potentially spoiled food. Pt is taking medications as directed, but did not take her medications today. Denies fever, chest pain, SOB, cough, diaphoresis, urinary symptoms, back pain, neck pain, jaw pain, arm pain, vision changes, calf pain, calf swelling. Past Medical History - Provider Review Nursing Documentation Reviewed: Yes - Infectious Disease Hx of Infectious Diseases: None - Reproductive Menopause: Yes - Cardiac Hx Pacemaker: No - Pulmonary Hx Respiratory Disorders: Yes - Neurological Hx Paralysis: No - HEENT Hx HEENT Disorder: Yes Hx Cataracts: Yes (Cataract sx) - Renal Hx Renal Disorder: No - Endocrine/Metabolic Hx Hypothyroidism: Yes - Hematological/Oncological Hx Blood Transfusions: Yes Hx Blood Transfusion Reaction: No - Integumentary Hx Dermatological Disorder: No - Musculoskeletal/Rheumatological Hx Musculoskeletal Disorders: No - Gastrointestinal Hx Gastrointestinal Disorders: Yes Hx Gastroesophageal Reflux: Yes - Genitourinary/Gynecological Hx Genitourinary Disorders: No - Psychiatric Hx Emotional Abuse: No Hx Physical Abuse: No Hx Substance Use: No - Surgical History Hx Cholecystectomy: Yes - Anesthesia Hx Anesthesia Reactions: No Hx Malignant Hyperthermia: No - Suicidal Assessment Feels Threatened In Home Enviroment: No Family/Social History - Physician Review Nursing Documentation Reviewed: Yes Family/Social History: No Known Family HX Smoking Status: Never Smoked Hx Alcohol Use: No Hx Substance Use: No Hx Substance Use Treatment: No Allergies/Home Meds Allergies/Adverse Reactions: Allergies erythromycin base Allergy (Severe, Verified 08/18/18 19:54) URTICARIA Home Medications: Home Meds Medication Instructions Recorded Confirmed Metoprolol Succinate XL [Toprol XL] 100 mg PO QAM 03/10/12 08/18/18 Levothyroxine [Synthroid] 150 mcg PO DAILY 06/23/16 08/18/18 Cyanocobalamin (Vitamin B-12) 100 mcg PO DAILY 07/09/16 08/18/18 [Vitamin B-12] Folic Acid 1 mg PO DAILY 07/09/16 08/18/18 Pantoprazole Sodium [Protonix] 40 mg PO DAILY 07/08/17 08/18/18 hydroCHLOROthiazide [Microzide] 12.5 mg PO DAILY 07/08/17 08/18/18 PrednisoLONE 1% [Prednisolone 1 drop RIGHTEYE BID 09/17/17 08/18/18 Acetate 5 Ml] Warfarin [Coumadin] 4 mg PO DAILY 09/25/17 08/18/18 Metoprolol Succinate 50 mg PO QPM 02/09/18 08/18/18 valACYclovir [Valtrex] 500 tab PO DAILY 02/09/18 08/18/18 Enoxaparin [Lovenox] 100 mg SC BID 02/12/18 08/18/18 Warfarin [Coumadin] 3 mg PO TTS 08/18/18 08/18/18 Review of Systems - Physician Review All systems were reviewed & negative as marked: Yes - Review of Systems Constitutional: Fevers Eyes: Normal. absent: Vision Changes, Photophobia ENT: Normal. absent: Sore Throat, Sinus Congestion Respiratory: Normal. absent: SOB, Cough Cardiovascular: Palpitations. absent: Chest Pain, Edema, Calf Pain, Syncope Gastrointestinal: Abdominal Pain, Diarrhea, Nausea, Vomiting. absent: Appetite Changes, Hematochezia, Hematemesis Genitourinary Female: Normal. absent: Dysuria, Frequency, Vaginal Bleeding, Vaginal Discharge Musculoskeletal: Normal. absent: Arthralgias, Back Pain Skin: Normal. absent: Rash, Cellulitis Neurological: Normal. absent: Headache, Dizziness, Focal Weakness, Gait Changes Endocrine: Normal. absent: Diaphoresis Hemo/Lymphatic: Normal. absent: Adenopathy Psychiatric: Normal Physical Exam Vital Signs Reviewed: Yes Vital Signs Temp Pulse Resp BP Pulse Ox 08/18/18 14:21 99.7 F H 109 H 22 155/97 H 97 Temperature: Afebrile Blood Pressure: Hypertensive Pulse: Tachycardic Respiratory Rate: Normal (on my exam, rechecked resp rate - 18) Appearance: Positive for: Well-Appearing, Non-Toxic, Comfortable Pain Distress: None Mental Status: Positive for: Alert and Oriented X 3 - Systems Exam Head: Present: Atraumatic, Normocephalic Pupils: Present: PERRL Extroacular Muscles: Present: EOMI Conjunctiva: Present: Normal Mouth: Present: Dry Pharnyx: Present: Normal. No: ERYTHEMA, EXUDATE, TONSILS ENLARGED Nose (External): Present: Atraumatic Nose (Internal): Present: Normal Inspection, No Active Bleeding Neck: Present: Normal Range of Motion Respiratory/Chest: Present: Clear to Auscultation, Good Air Exchange, Other (port in place right chest). No: Respiratory Distress, Accessory Muscle Use, Wheezes, Decreased Breath Sounds, Rales, Retracting, Rhonchi, Tachypneic (resp rate 18 on exam), Tender to Palpation Cardiovascular: Present: Regular Rate and Rhythm, Normal S1, S2, Peripheal Pulses Present, Tachycardic. No: Murmurs, Irregular Rhythm, Bradycardic, Rub, Gallop, Muffled Abdomen: Present: Tenderness (mild left-sided tenderness ), Normal Bowel Sounds. No: Distention, Peritoneal Signs, Rebound, Guarding, Rovsing's Sign Present, Scars Back: Present: Normal Inspection Upper Extremity: Present: Normal Inspection, Normal ROM, NORMAL PULSES, Neurovascularly Intact. No: Cyanosis, Edema, Tenderness, Swelling, Deformity Lower Extremity: Present: Normal Inspection, NORMAL PULSES, Normal ROM, Neurovascularly Intact. No: Edema, Tenderness, Swelling, Deformity Neurological: Present: GCS=15, CN II-XII Intact, Speech Normal, Motor Func Grossly Intact, Normal Sensory Function, Normal Cerebellar Funct, Gait Normal, Memory Normal Skin: Present: Warm, Dry, Normal Color. No: Rashes, Diaphoretic, Erythematous, Hot, Cold, Pale Lymphatic: No: Cervical Adenopathy Psychiatric: Present: Alert, Oriented x 3, Normal Insight, Normal Concentration, Normal Affect, Normal Mood Medical Decision Making ED Course and Treatment: 08/18/18 14:00 Initial Plan: * EKG * CXR * CBC, CMP, Lipase * PT/PTT * Troponin * IVF * Zofran * UA, culture * CT Abd/Pelvis 08/18/18 15:52 On re-evaluation, pt less nauseous, feels much better. EKG: rate 101; Sinus tachycardia; LAD; incomplete RBBB; no ST elevations. Compared with prior EKG 09/23/17, similar. CBC: wnl CMP: wnl Lipase: wnl Troponin: <0.01 CT abd/pelvis: negative for acute pathology CXR: no active disease Updated pt on diagnostic testing results 08/18/18 17:45 Pt reluctant to give urine. Spoke with pt and explained the importance of getting a sample to r/o infection. Pt will attempt to urinate. Case discussed with Dr. Gmaa who agrees with plan of care. 08/18/18 18:33 UA: unremarkable PT/INR: wnl, pt on coumadin PTT: called by lab with critically high level, will redraw. Pt states heparin was put in her port yesterday afternoon. Redraw value 35.1, normal. Temperature now 100.9 and pt is tachycardic at 118, will give Tylenol and more fluids. No vomiting in the ER, one episode of diarrhea. Pt now telling me she is on maintenance Rituxan every 2 months, last dose 07/26/18. Will call Dr. Perez who is covering for Dr. Monge for possible inpatient observation. 08/18/18 18:[address] Perez who would like to admit the patient for observation. Will get VBG and blood cultures. Plan of care discussed with pt and family who understand the reasoning behind admission to hospital and agree with disposition. Impression: Gastroenteritis Plan: Admission for observation 08/18/18 19:50 Lab called asking for lactate order to be changed from VBG to VBG shock panel in order to be run. 08/18/18 20:46 Lactate: 2.2 VBG: PO2 59, otherwise unremarkable Dr. Perez updated with results of VBG, recommends 1g Vanco, 1g Cefepime IV and maintenance fluids 08/18/18 23:34 - Lab Interpretations I have reviewed the lab results: Yes Interpretation: All labs normal - RAD Interpretation Narrative RAD Interpretations (Text): 08/18/18 17:59 FINDINGS: LOWER THORAX: Unremarkable. LIVER: Mild hepatic steatosis. Hepatomegaly. No gross lesion or ductal dilatation. GALLBLADDER AND BILE DUCTS: Cholecystectomy with surgical clips in place. PANCREAS: Unremarkable. No gross lesion or ductal dilatation. SPLEEN: Splenomegaly. ADRENALS: Unremarkable. No mass. KIDNEYS AND URETERS: Unremarkable. No hydronephrosis. No solid mass. VASCULATURE: Unremarkable. No aortic aneurysm. No aortic atherosclerotic calcification or mural plaque present. BOWEL: Unremarkable. No obstruction. No gross mural thickening. APPENDIX: Normal appendix. PERITONEUM: Unremarkable. No free fluid. No free air. LYMPH NODES: Unremarkable. No enlarged lymph nodes. BLADDER: Unremarkable. REPRODUCTIVE: Unremarkable. BONES: No acute fracture. Spinal degenerative changes. OTHER FINDINGS: None. IMPRESSION: No acute abdominal pelvic pathology. Stable findings as above. Process Control Specialist: Radiologist - EKG Interpretation Interpreted by ED Physician: Yes Type: 12 lead EKG Comparison: Similar to previous EKG Disposition/Present on Arrival - Present on Arrival Any Indicators Present on Arrival: Yes History of DVT/PE: Yes History of Uncontrolled Diabetes: No Urinary Catheter: No History of Decub. Ulcer: No History Surgical Site Infection Following: None - Disposition Have Diagnosis and Disposition been Completed?: Yes Diagnosis: Gastroenteritis Disposition: HOSPITALIZED Disposition Time: 18:20 Patient Plan: Admission Patient Problems: Current Active Problems Problem Status Onset Gastroenteritis Acute Condition: STABLE
[2018-08-18 15:43] LABS: BASO # 0.01 K/mm3 (0.0-2.0); BASO % 0.2 % (0.0-3.0); EOS % 0.3 % (1.5-5.0); GRAN # 5.18 (1.4-6.5); GRAN % 89.1 % (50.0-68.0); HEMOGLOBIN 13.3 g/dL (12.0-16.0); LYMPH # 0.3 (1.2-3.4); LYMPH % 5.9 % (22.0-35.0); MEAN CELL VOLUME 93.9 fl (80.0-105.0); MEAN CORPUSCULAR HEMOGLOBIN 31.2 pg (25.0-35.0); MEAN CORPUSCULAR HGB CONC 33.3 g/dl (31.0-37.0); MEAN PLATELET VOLUME 9.7 fl (7.0-11.0); MONO # 0.3 (0.1-0.6); MONO % 4.5 % (1.0-6.0); RBC 4.26 10^6/uL (3.5-6.1); WHITE BLOOD COUNT 5.8 10^3/uL (4.5-11.0)
[2018-08-18 16:12] LABS: ALB/GLOB RATIO 1.4 (1.1-1.8); ALT/SGPT 42 U/L (7-56); AST/SGOT 35 U/L (14-36); BLOOD UREA NITROGEN 15 mg/dL (7-21); GFR NON-AFRICAN AMERICAN > 60; LIPASE 167 U/L (23-300)
[2018-08-18 16:24] LABS: TROPONIN I < 0.01 ng/mL
[2018-08-18] MEDS ORDERED: Iohexol 350 MG/100 ML VIAL ONE (16:34)
--- NOTE | 2018-08-18 17:17 | CT ---
Date of service: 08/18/2018 PROCEDURE: CT Abdomen and Pelvis with contrast HISTORY: vomiting, Left-sided abdominal tenderness COMPARISON: PET-CT dated 09/22/2017 TECHNIQUE: Contrast dose: 100 mL Omnipaque 350 Radiation dose: Total exam DLP = 1224.86 mGy-cm. This CT exam was performed using one or more of the following dose reduction techniques: Automated exposure control, adjustment of the mA and/or kV according to patient size, and/or use of iterative reconstruction technique. FINDINGS: LOWER THORAX: Unremarkable. LIVER: Mild hepatic steatosis. Hepatomegaly. No gross lesion or ductal dilatation. GALLBLADDER AND BILE DUCTS: Cholecystectomy with surgical clips in place. PANCREAS: Unremarkable. No gross lesion or ductal dilatation. SPLEEN: Splenomegaly. ADRENALS: Unremarkable. No mass. KIDNEYS AND URETERS: Unremarkable. No hydronephrosis. No solid mass. VASCULATURE: Unremarkable. No aortic aneurysm. No aortic atherosclerotic calcification or mural plaque present. BOWEL: Unremarkable. No obstruction. No gross mural thickening. APPENDIX: Normal appendix. PERITONEUM: Unremarkable. No free fluid. No free air. LYMPH NODES: Unremarkable. No enlarged lymph nodes. BLADDER: Unremarkable. REPRODUCTIVE: Unremarkable. BONES: No acute fracture. Spinal degenerative changes. OTHER FINDINGS: None. IMPRESSION: No acute abdominal pelvic pathology. Stable findings as above.
[2018-08-18 17:59] LABS: URINE BILIRUBIN NEGATIVE (NEGATIVE); URINE BLOOD NEGATIVE (NEGATIVE); URINE GLUCOSE (UA) NEGATIVE (NEGATIVE); URINE LEUKOCYTE ESTERASE NEGATIVE Leu/uL (NEGATIVE); URINE PROTEIN NEGATIVE mg/dL (<30 mg/dL); URINE UROBILINOGEN 0.2 E.U./dL (<1 E.U./dL)
[2018-08-18 18:00] LABS: URINE APPEARANCE CLEAR (CLEAR); URINE COLOR YELLOW (YELLOW)
--- NOTE | 2018-08-18 18:00 | CARD ---
APPROVED REPORT Date of service: 08/18/2018 EKG Measurement Heart [id number] ID [id number] <Conclusion> Sinus tachycardia Left axis deviation Incomplete right bundle branch block Moderate voltage criteria for LVH, may be normal variant Abnormal ECG
--- NOTE | 2018-08-18 18:06 | RAD ---
Date of service: 08/18/2018 HISTORY: fever r/o PNA COMPARISON: 01/04/2018 FINDINGS: LUNGS: Right-sided central venous catheter terminates in the SVC. The lungs are well inflated and clear. PLEURA: No pleural effusions or pneumothorax. CARDIOVASCULAR: The heart is normal in size. No aortic atherosclerotic calcification present. OSSEOUS STRUCTURES: Within normal limits for the patient's age. VISUALIZED UPPER ABDOMEN: Normal. OTHER FINDINGS: None. IMPRESSION: No acute findings.
[2018-08-18 20:09] LABS: VENOUS BLOOD GAS BASE EXCESS -1.5 mmol/L (0.0-2.0); VENOUS BLOOD GAS PO2 59 mm/Hg (30-55); VENOUS BLOOD PH 7.35 (7.32-7.43)
[2018-08-18 20:32] LABS: INR 1.79; PARTIAL THROMBOPLASTIN TIME 35.1 Seconds (25.1-36.5); PROTHROMBIN TIME 20.6 SECONDS (9.4-12.5)
[2018-08-18] MEDS ORDERED: Cefepime 1gm in NS 100ml 1 GM/100 ML BAG IVPB STA (20:41)
[2018-08-18] MEDS ORDERED: Vancomycin 1gm in NS 250ml 1 GM/250 ML BAG IVPB STA (20:41)
[2018-08-18] MEDS: Sodium Chloride 0.9% 1,000 ML IV SCH ×2 (20:58→22:31)
[2018-08-18] MEDS ORDERED: Pneumococcal 23-Valent Vaccine IM ONE (22:49)
[2018-08-18] MEDS ORDERED: Influenza Vaccine 60 mcg/0.5 mL SYR (4YR UP) IM ONE (22:49)
[2018-08-18 23:15] LABS: VENOUS BLOOD GAS BASE EXCESS -0.8 mmol/L (0.0-2.0); VENOUS BLOOD GAS PO2 50 mm/Hg (30-55); VENOUS BLOOD PH 7.38 (7.32-7.43)
[2018-08-19 06:22] LABS: MEAN CELL VOLUME 93.9 fl (80.0-105.0); MEAN CORPUSCULAR HEMOGLOBIN 30.6 pg (25.0-35.0); MEAN CORPUSCULAR HGB CONC 32.6 g/dl (31.0-37.0); MEAN PLATELET VOLUME 9.6 fl (7.0-11.0); RBC 3.63 10^6/uL (3.5-6.1); RED CELL DISTRIBUTION WIDTH 14.4 % (11.5-14.5); WHITE BLOOD COUNT 3.4 10^3/uL (4.5-11.0)
[2018-08-19 06:31] LABS: HEMOGLOBIN 11.1 g/dL (12.0-16.0)
[2018-08-19 06:38] LABS: ALB/GLOB RATIO 1.3 (1.1-1.8); ALBUMIN 3.2 g/dL (3.0-4.8); ALT/SGPT 40 U/L (7-56); AST/SGOT 26 U/L (14-36); BLOOD UREA NITROGEN 11 mg/dL (7-21); GFR NON-AFRICAN AMERICAN > 60
[2018-08-19] MEDS ORDERED: Potassium Chloride 20 mEq ER Tab PO STA (07:18)
--- NOTE | 2018-08-19 07:43 | CP.PCM.HP ---
<Bashir Osuna - Last Filed: 08/19/18 09:42> History of Present Illness - History of Present Illness History of Present Illness: Bashir Osuna DO, PGY-2: HPI for Dr. Fay 63 year old female with a past medical history of NHL, atrial fibrillation, DVT/PE, GERD, and hypothyroidism who presents with one day of nausea, non- bloody, non-bilious emesis, diarrhea, left sided abdominal pain and fever. She reports no sick contacts at home and eating nothing out of the ordinary. She does have a port-a-cath and received her last infusion of Rituximab 2 weeks ago. She was also found to have an elevated lactate on admission and was started on broad spectrum antibiotics. She reports having four episodes of diarrhea since admission. In the ED, CT of the A/P with IV contrast showed hepatomegaly and splenomegaly. At the time of my encounter she admits to nausea, diarrhea, and left upper quadrant abdominal pain. She denies fevers since being given the antibiotics. PMH: NHL, atrial fibrillation, DVT/PE, GERD, PE, and hypothyroidism PSH: Cholecystectomy, cataract surgery Allergies: Erythromycin Social: Lives at home with Present on Admission - Present on Admission Any Indicators Present on Admission: Yes History of DVT/PE: Yes Review of Systems - Review of Systems All systems: reviewed and no additional remarkable complaints except (as per HPI) Past Patient History - Infectious Disease Hx of Infectious Diseases: None - Past Social History Smoking Status: Never Smoked - CARDIAC Hx Pacemaker: No - PULMONARY Hx Respiratory Disorders: Yes - NEUROLOGICAL Hx Paralysis: No - HEENT Hx HEENT Problems: Yes Hx Cataracts: Yes (Cataract sx) - RENAL Hx Chronic Kidney Disease: No - ENDOCRINE/METABOLIC Hx Hypothyroidism: Yes - HEMATOLOGICAL/ONCOLOGICAL Hx Blood Transfusions: Yes Hx Blood Transfusion Reaction: No - INTEGUMENTARY Hx Dermatological Problems: No - MUSCULOSKELETAL/RHEUMATOLOGICAL Hx Musculoskeletal Disorders: No - GASTROINTESTINAL Hx Gastrointestinal Disorders: Yes Hx Gastroesophageal Reflux: Yes - GENITOURINARY/GYNECOLOGICAL Hx Genitourinary Disorders: No - PSYCHIATRIC Hx Emotional Abuse: No Hx Physical Abuse: No Hx Substance Use: No - SURGICAL HISTORY Hx Cholecystectomy: Yes - ANESTHESIA Hx Anesthesia Reactions: No Hx Malignant Hyperthermia: No Meds Allergies/Adverse Reactions: Allergies Allergy/AdvReac Type Severity Reaction Status Date / Time erythromycin base Allergy Severe URTICARIA Verified 08/18/18 19:54 Physical Exam - Constitutional Appears: Non-toxic, No Acute Distress - Head Exam Head Exam: ATRAUMATIC, NORMOCEPHALIC - Eye Exam Eye Exam: EOMI, Normal appearance - ENT Exam ENT Exam: Mucous Membranes Moist - Neck Exam Neck exam: Positive for: Normal Inspection - Respiratory Exam Respiratory Exam: Clear to Auscultation Bilateral, NORMAL BREATHING PATTERN. absent: Accessory Muscle Use - Cardiovascular Exam Cardiovascular Exam: RRR, +S1, +S2 - GI/Abdominal Exam GI & Abdominal Exam: Normal Bowel Sounds, Soft. absent: Guarding - Extremities Exam Extremities exam: Positive for: normal inspection. Negative for: calf tenderness, pedal edema - Neurological Exam Neurological exam: Alert, CN II-XII Intact, Oriented x3 - Psychiatric Exam Psychiatric exam: Normal Affect, Normal Mood - Skin Skin Exam: Dry, Intact, Normal Color, Warm Results - Vital Signs Recent Vital Signs: Last Vital Signs Temp 98.5 F 08/19/18 02:43 Pulse 92 H 08/19/18 05:32 Resp 20 08/19/18 02:43 BP 116/62 08/19/18 02:43 Pulse Ox 96 08/19/18 02:43 - Labs Result Diagrams: 08/19/18 05:30 08/19/18 05:30 Labs: Laboratory Results - last 24 hr 08/18/18 08/18/18 08/18/18 15:34 15:34 17:50 WBC 5.8 RBC 4.26 Hgb 13.3 Hct 40.0 MCV 93.9 MCH 31.2 MCHC 33.3 RDW 14.0 Plt Count 158 MPV 9.7 Gran % 89.1 H Lymph % (Auto) 5.9 L [place] % (Auto) 4.5 Eos % (Auto) 0.3 L Baso % (Auto) 0.2 Gran # 5.18 Lymph # (Auto) 0.3 L [place] # (Auto) 0.3 Eos # (Auto) 0.0 Baso # (Auto) 0.01 PT INR APTT pO2 VBG pH VBG pCO2 VBG HCO3 VBG Total CO2 VBG O2 Sat (Calc) VBG Base Excess VBG Potassium Glucose Lactate FiO2 Sodium 140 Potassium 3.9 Chloride 107 Carbon Dioxide 25 Anion Gap 12 BUN 15 Creatinine 0.7 Est GFR ( Amer) > 60 Est GFR (Non-Af Amer) > 60 Random Glucose 108 Calcium 9.0 Total Bilirubin 0.7 AST 35 ALT 42 Alkaline Phosphatase 117 Troponin I < 0.01 Total Protein 6.9 Albumin 4.0 Globulin 2.9 Albumin/Globulin Ratio 1.4 Lipase 167 Venous Blood Potassium Urine Color Yellow Urine Appearance Clear Urine pH 6.0 Ur Specific [place] 1.010 Urine Protein Negative Urine Glucose (UA) Negative Urine Ketones Negative Urine Blood Negative Urine Nitrate Negative Urine Bilirubin Negative Urine Urobilinogen 0.2 Ur Leukocyte Esterase Negative 08/18/18 08/18/18 08/18/18 19:30 19:30 23:10 WBC RBC Hgb Hct MCV MCH MCHC RDW Plt Count MPV Gran % Lymph % (Auto) [place] % (Auto) Eos % (Auto) Baso % (Auto) Gran # Lymph # (Auto) [place] # (Auto) Eos # (Auto) Baso # (Auto) PT 20.6 H INR 1.79 APTT 35.1 pO2 59 H 50 VBG pH 7.35 7.38 VBG pCO2 44.0 41.0 VBG HCO3 24.3 24.3 VBG Total CO2 25.7 25.6 VBG O2 Sat (Calc) 92.9 H 88.1 H VBG Base Excess -1.5 L -0.8 L VBG Potassium 3.6 3.3 L Glucose 118 H 105 Lactate 2.2 H 1.0 FiO2 21.0 21.0 Sodium 140.0 141.0 Potassium Chloride 106.0 108.0 H Carbon Dioxide Anion Gap BUN Creatinine Est GFR ( Amer) Est GFR (Non-Af Amer) Random Glucose Calcium Total Bilirubin AST ALT Alkaline Phosphatase Troponin I Total Protein Albumin Globulin Albumin/Globulin Ratio Lipase Venous Blood Potassium 3.6 3.3 L Urine Color Urine Appearance Urine pH Ur Specific [place] Urine Protein Urine Glucose (UA) Urine Ketones Urine Blood Urine Nitrate Urine Bilirubin Urine Urobilinogen Ur Leukocyte Esterase 08/19/18 08/19/18 05:30 05:30 WBC 3.4 L D RBC 3.63 Hgb 11.1 L D Hct 34.1 L MCV 93.9 MCH 30.6 MCHC 32.6 RDW 14.4 Plt Count 133 MPV 9.6 Gran % Lymph % (Auto) [place] % (Auto) Eos % (Auto) Baso % (Auto) Gran # Lymph # (Auto) [place] # (Auto) Eos # (Auto) Baso # (Auto) PT INR APTT pO2 VBG pH VBG pCO2 VBG HCO3 VBG Total CO2 VBG O2 Sat (Calc) VBG Base Excess VBG Potassium Glucose Lactate FiO2 Sodium 138 Potassium 3.4 L Chloride 108 H Carbon Dioxide 26 Anion Gap 8 L BUN 11 Creatinine 0.7 Est GFR ( Amer) > 60 Est GFR (Non-Af Amer) > 60 Random Glucose 107 Calcium 8.0 L Total Bilirubin 0.7 AST 26 ALT 40 Alkaline Phosphatase 90 Troponin I Total Protein 5.7 L Albumin 3.2 Globulin 2.5 Albumin/Globulin Ratio 1.3 Lipase Venous Blood Potassium Urine Color Urine Appearance Urine pH Ur Specific [place] Urine Protein Urine Glucose (UA) Urine Ketones Urine Blood Urine Nitrate Urine Bilirubin Urine Urobilinogen Ur Leukocyte Esterase Assessment & Plan - Assessment and Plan (Free Text) Assessment: 63 year old male with a past medical history of NHL, atrial fibrillation, PE, GERD, and hypothyroidism who presented with nausea, vomiting, diarrhea and fever. Patient was started on broad spectrum antibiotics. ID was consulted as well the patient's oncologist, Dr. Crawford. We will perform a CT with PO contrast of the abdomen and pelvis and follow up the C. difficile toxin and antigen. We will follow up with blood cultures, urine cultures. We will follow up with ID recommendations as well as Dr. Crawford's Case was reviewed and discussed with attending physician, Dr. Fay - Date & Time Date: 08/19/18 Time: : <Ajay Fay S - Last Filed: 08/19/18 17:09> Results - Vital Signs Recent Vital Signs: Last Vital Signs Temp 98.7 F 08/19/18 16:26 Pulse 68 08/19/18 16:26 Resp 20 08/19/18 16:26 BP 117/55 L 08/19/18 16:26 Pulse Ox 97 08/19/18 16:26 - Labs Result Diagrams: 08/19/18 05:30 08/19/18 05:30 Labs: Laboratory Results - last 24 hr 08/18/18 08/18/18 08/18/18 17:50 19:30 19:30 WBC RBC Hgb Hct MCV MCH MCHC RDW Plt Count MPV PT 20.6 H INR 1.79 APTT 35.1 pO2 59 H VBG pH 7.35 VBG pCO2 44.0 VBG HCO3 24.3 VBG Total CO2 25.7 VBG O2 Sat (Calc) 92.9 H VBG Base Excess -1.5 L VBG Potassium 3.6 Sodium 140.0 Chloride 106.0 Glucose 118 H Lactate 2.2 H FiO2 21.0 Potassium Carbon Dioxide Anion Gap BUN Creatinine Est GFR ( Amer) Est GFR (Non-Af Amer) Random Glucose Calcium Total Bilirubin AST ALT Alkaline Phosphatase Total Protein Albumin Globulin Albumin/Globulin Ratio Venous Blood Potassium 3.6 Urine Color Yellow Urine Appearance Clear Urine pH 6.0 Ur Specific [place] 1.010 Urine Protein Negative Urine Glucose (UA) Negative Urine Ketones Negative Urine Blood Negative Urine Nitrate Negative Urine Bilirubin Negative Urine Urobilinogen 0.2 Ur Leukocyte Esterase Negative 08/18/18 08/19/18 08/19/18 23:10 05:30 05:30 WBC 3.4 L D RBC 3.63 Hgb 11.1 L D Hct 34.1 L MCV 93.9 MCH 30.6 MCHC 32.6 RDW 14.4 Plt Count 133 MPV 9.6 PT INR APTT pO2 50 VBG pH 7.38 VBG pCO2 41.0 VBG HCO3 24.3 VBG Total CO2 25.6 VBG O2 Sat (Calc) 88.1 H VBG Base Excess -0.8 L VBG Potassium 3.3 L Sodium 141.0 138 Chloride 108.0 H 108 H Glucose 105 Lactate 1.0 FiO2 21.0 Potassium 3.4 L Carbon Dioxide 26 Anion Gap 8 L BUN 11 Creatinine 0.7 Est GFR ( Amer) > 60 Est GFR (Non-Af Amer) > 60 Random Glucose 107 Calcium 8.0 L Total Bilirubin 0.7 AST 26 ALT 40 Alkaline Phosphatase 90 Total Protein 5.7 L Albumin 3.2 Globulin 2.5 Albumin/Globulin Ratio 1.3 Venous Blood Potassium 3.3 L Urine Color Urine Appearance Urine pH Ur Specific [place] Urine Protein Urine Glucose (UA) Urine Ketones Urine Blood Urine Nitrate Urine Bilirubin Urine Urobilinogen Ur Leukocyte Esterase Assessment & Plan - Assessment and Plan (Free Text) Assessment: Pt seen and examined. I have reviewed the note of the hospital medical biller and agree with it. I have discussed the assessment and plan with the resident. I have reviewed the patient's labs and medications. Pt with fever, diarrhea, vomiting. She has a R sided port for her chemo for her lymphoma. I spoke to the pt;s to give him an update. She has a BCx and UCx that was ordered. Pt will need CT of the Abd with PO contrast due to the abd pain. She will have . C diff toxin sent and will get ID consult.
[2018-08-19] MEDS ORDERED: Barium Sulfate Susp 2.1% w/v, 2.0% w/w 450 mL Bottle PO ONE (08:46)
[2018-08-19] MEDS: Levothyroxine 150 MCG TAB PO SCH (09:07)
[2018-08-19] MEDS: Metoprolol Succinate 100 mg XL Tab PO SCH (09:07)
[2018-08-19] MEDS: PrednisoLONE 1% Opht Susp(5 ml) OD SCH ×2 (09:59→17:53)
--- NOTE | 2018-08-19 11:40 | CP.PCM.CON ---
History of Present Illness - History of Present Illness History of Present Illness: Covering Dr. 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 Crawford, presenting with nausea, vomiting, diarrhea and fevers. The patient notes to her symptoms starting 1 day prior to coming to the hospital. She did receive a flu shot several days prior. She receives rituximab every other month with Dr. Crawford. She denies recent sick contact. 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 Past surgical history: Cholecystetomy, cataract, portacath Family history: Mother had breast cancer Social history: Denies tobacco, alcohol, and illicit drug use. Allergies: Erythromycin Review of systems: All remaining review of systems including HEENT, cardiovascular, respiratory, gastrointestinal, genitourinary musculoskeletal, dermatologic, neurologic, and psychiatric are negative unless mentioned in the HPI. Past Patient History - Infectious Disease Hx of Infectious Diseases: None - Past Social History Smoking Status: Never Smoked - CARDIAC Hx Pacemaker: No - PULMONARY Hx Respiratory Disorders: Yes - NEUROLOGICAL Hx Paralysis: No - HEENT Hx HEENT Problems: Yes Hx Cataracts: Yes (Cataract sx) - RENAL Hx Chronic Kidney Disease: No - ENDOCRINE/METABOLIC Hx Hypothyroidism: Yes - HEMATOLOGICAL/ONCOLOGICAL Hx Blood Transfusions: Yes Hx Blood Transfusion Reaction: No - INTEGUMENTARY Hx Dermatological Problems: No - MUSCULOSKELETAL/RHEUMATOLOGICAL Hx Musculoskeletal Disorders: No - GASTROINTESTINAL Hx Gastrointestinal Disorders: Yes Hx Gastroesophageal Reflux: Yes - GENITOURINARY/GYNECOLOGICAL Hx Genitourinary Disorders: No - PSYCHIATRIC Hx Emotional Abuse: No Hx Physical Abuse: No Hx Substance Use: No - SURGICAL HISTORY Hx Cholecystectomy: Yes - ANESTHESIA Hx Anesthesia Reactions: No Hx Malignant Hyperthermia: No Meds Allergies/Adverse Reactions: Allergies Allergy/AdvReac Type Severity Reaction Status Date / Time erythromycin base Allergy Severe URTICARIA Verified 08/18/18 19:54 - Medications Medications: Current Medications Hydrochlorothiazide (Microzide) 12.5 mg PO DAILY TANYA Last Admin: 08/19/18 09:06 Dose: 12.5 mg Sodium Chloride (Sodium Chloride 0.9%) 1,000 mls @ 100 mls/hr IV .Q10H TANYA Last Admin: 08/18/18 22:31 Dose: 100 mls/hr Ibuprofen (Motrin Tab) 600 mg PO Q8 PRN PRN Reason: Headache Last Admin: 08/19/18 08:27 Dose: 600 mg Levothyroxine Sodium (Synthroid) 150 mcg PO DAILY [facility] Last Admin: 08/19/18 09:07 Dose: 150 mcg Metoprolol Succinate (Toprol Xl) 50 mg PO QPM [facility] Metoprolol Succinate (Toprol Xl) 100 mg PO QAM [facility] Last Admin: 08/19/18 09:07 Dose: 100 mg Ondansetron HCl (Zofran Inj) 4 mg IVP Q6H PRN PRN Reason: Nausea/Vomiting Prednisolone Acetate (Pred Forte 1% Opht Susp) 0 ml OD BID [facility] Last Admin: 08/19/18 09:59 Dose: 1 drop Valacyclovir HCl (Valtrex) 500 mg PO DAILY [facility]; Protocol Last Admin: 08/19/18 09:06 Dose: 500 mg Physical Exam - Head Exam Head Exam: ATRAUMATIC - Eye Exam Eye Exam: Normal appearance - ENT Exam ENT Exam: Mucous Membranes Dry - Respiratory Exam Respiratory Exam: NORMAL BREATHING PATTERN - Cardiovascular Exam Cardiovascular Exam: +S1, +S2 - GI/Abdominal Exam GI & Abdominal Exam: Normal Bowel Sounds - Neurological Exam Neurological exam: Oriented x3 - Psychiatric Exam Psychiatric exam: Normal Affect, Normal Mood - Skin Skin Exam: Warm Results - Vital Signs Recent Vital Signs: Last Vital Signs Temp 98.3 F 08/19/18 08:40 Pulse 96 H 08/19/18 09:07 Resp 19 08/19/18 08:40 BP 128/70 08/19/18 09:07 Pulse Ox 100 08/19/18 08:40 - Labs Result Diagrams: 08/19/18 05:30 08/19/18 05:30 Labs: Laboratory Results - last 24 hr 08/18/18 08/18/18 08/18/18 15:34 15:34 17:50 WBC 5.8 RBC 4.26 Hgb 13.3 Hct 40.0 MCV 93.9 MCH 31.2 MCHC 33.3 RDW 14.0 Plt Count 158 MPV 9.7 Gran % 89.1 H Lymph % (Auto) 5.9 L [place] % (Auto) 4.5 Eos % (Auto) 0.3 L Baso % (Auto) 0.2 Gran # 5.18 Lymph # (Auto) 0.3 L [place] # (Auto) 0.3 Eos # (Auto) 0.0 Baso # (Auto) 0.01 PT INR APTT pO2 VBG pH VBG pCO2 VBG HCO3 VBG Total CO2 VBG O2 Sat (Calc) VBG Base Excess VBG Potassium Glucose Lactate FiO2 Sodium 140 Potassium 3.9 Chloride 107 Carbon Dioxide 25 Anion Gap 12 BUN 15 Creatinine 0.7 Est GFR ( Amer) > 60 Est GFR (Non-Af Amer) > 60 Random Glucose 108 Calcium 9.0 Total Bilirubin 0.7 AST 35 ALT 42 Alkaline Phosphatase 117 Troponin I < 0.01 Total Protein 6.9 Albumin 4.0 Globulin 2.9 Albumin/Globulin Ratio 1.4 Lipase 167 Venous Blood Potassium Urine Color Yellow Urine Appearance Clear Urine pH 6.0 Ur Specific [place] 1.010 Urine Protein Negative Urine Glucose (UA) Negative Urine Ketones Negative Urine Blood Negative Urine Nitrate Negative Urine Bilirubin Negative Urine Urobilinogen 0.2 Ur Leukocyte Esterase Negative 08/18/18 08/18/18 08/18/18 19:30 19:30 23:10 WBC RBC Hgb Hct MCV MCH MCHC RDW Plt Count MPV Gran % Lymph % (Auto) [place] % (Auto) Eos % (Auto) Baso % (Auto) Gran # Lymph # (Auto) [place] # (Auto) Eos # (Auto) Baso # (Auto) PT 20.6 H INR 1.79 APTT 35.1 pO2 59 H 50 VBG pH 7.35 7.38 VBG pCO2 44.0 41.0 VBG HCO3 24.3 24.3 VBG Total CO2 25.7 25.6 VBG O2 Sat (Calc) 92.9 H 88.1 H VBG Base Excess -1.5 L -0.8 L VBG Potassium 3.6 3.3 L Glucose 118 H 105 Lactate 2.2 H 1.0 FiO2 21.0 21.0 Sodium 140.0 141.0 Potassium Chloride 106.0 108.0 H Carbon Dioxide Anion Gap BUN Creatinine Est GFR ( Amer) Est GFR (Non-Af Amer) Random Glucose Calcium Total Bilirubin AST ALT Alkaline Phosphatase Troponin I Total Protein Albumin Globulin Albumin/Globulin Ratio Lipase Venous Blood Potassium 3.6 3.3 L Urine Color Urine Appearance Urine pH Ur Specific [place] Urine Protein Urine Glucose (UA) Urine Ketones Urine Blood Urine Nitrate Urine Bilirubin Urine Urobilinogen Ur Leukocyte Esterase 08/19/18 08/19/18 05:30 05:30 WBC 3.4 L D RBC 3.63 Hgb 11.1 L D Hct 34.1 L MCV 93.9 MCH 30.6 MCHC 32.6 RDW 14.4 Plt Count 133 MPV 9.6 Gran % Lymph % (Auto) [place] % (Auto) Eos % (Auto) Baso % (Auto) Gran # Lymph # (Auto) [place] # (Auto) Eos # (Auto) Baso # (Auto) PT INR APTT pO2 VBG pH VBG pCO2 VBG HCO3 VBG Total CO2 VBG O2 Sat (Calc) VBG Base Excess VBG Potassium Glucose Lactate FiO2 Sodium 138 Potassium 3.4 L Chloride 108 H Carbon Dioxide 26 Anion Gap 8 L BUN 11 Creatinine 0.7 Est GFR ( Amer) > 60 Est GFR (Non-Af Amer) > 60 Random Glucose 107 Calcium 8.0 L Total Bilirubin 0.7 AST 26 ALT 40 Alkaline Phosphatase 90 Troponin I Total Protein 5.7 L Albumin 3.2 Globulin 2.5 Albumin/Globulin Ratio 1.3 Lipase Venous Blood Potassium Urine Color Urine Appearance Urine pH Ur Specific [place] Urine Protein Urine Glucose (UA) Urine Ketones Urine Blood Urine Nitrate Urine Bilirubin Urine Urobilinogen Ur Leukocyte Esterase Assessment & Plan (1) Non-Hodgkin lymphoma Assessment and Plan: marginal zone lymphoma - hepatosplenomegaly noted by CT s/p 6 cycles RCHOP on maintenance rituximab with Dr. Crawford outpatient f/u with Dr. Crawford Status: Acute (2) Anemia Assessment and Plan: check retic count, b12, folate, ferritin, to further characterize Status: Acute (3) Leukocytopenia Assessment and Plan: mild, no neutropenia Status: Acute (4) Hx pulmonary embolism Assessment and Plan: on anticoagulation Status: Acute (5) Coagulopathy Assessment and Plan: secondary to anticoagulation Thank you for this interesting consult. Status: Acute
[2018-08-19] MEDS: Cefepime 1gm in NS 100ml 1 GM/100 ML BAG IVPB SCH ×2 (14:15→21:01)
[2018-08-19] MEDS: metroNIDAZOLE IV 500 mg/100 ml 500 MG/100 ML BAG IVPB SCH ×2 (14:15→21:01)
[2018-08-19] MEDS: Vancomycin 1gm in NS 250ml 1 GM/250 ML BAG IVPB SCH (14:15)
[2018-08-19 16:27] VITALS: RESP 20
[2018-08-19] MEDS ORDERED: Metoprolol Succinate 50 mg XL Tab PO SCH (18:00)
[2018-08-20] MEDS: Vancomycin 1gm in NS 250ml 1 GM/250 ML BAG IVPB SCH (00:54)
--- NOTE | 2018-08-20 01:06 | CON ---
DATE: 08/19/2018 LOCATION: The patient is in bed in [facility], bed 1. CHIEF COMPLAINT: Nausea, vomiting, diarrhea and abdominal cramp x1 to 2 days' duration. HISTORY OF PRESENT ILLNESS: This is a 63-year-old female with a past medical history significant for hypertension, migraine headache, hypothyroidism, GERD, DVT, pulmonary emboli, atrial fibrillation and cell lymphoma, status post radiation in January and has a Port-A-Cath in the right chest. She was last seen by me in 2013 when she had a history of also congestive heart failure, now admitted through the emergency room with a diagnosis of nausea and vomiting and gastroenteritis. She is having fevers, diagnosis of non-Hodgkin's lymphoma. Although in the emergency room she states that she was not having any fevers, she told me she was having fevers. No blood per rectum and stool. The patient was treated with rituximab, also had a cholecystectomy and a Port-A-Cath placement. REVIEW OF SYSTEMS: A 12-point review of systems was performed. PAST MEDICAL HISTORY: Significant for hypertension, migraine headaches, non-Hodgkin's lymphoma, congestive heart failure, DVT, PE and atrial fibrillation. PAST SURGICAL HISTORY: Significant for right Port-A-Cath and cholecystectomy. ALLERGIES: THE PATIENT IS ALLERGIC TO ERYTHROMYCIN-BASED ANTIBIOTICS. MEDICATIONS: The patient's medications at home include Valtrex. The patient is also on rituximab and metoprolol. PHYSICAL EXAMINATION: GENERAL: The patient is in bed, in no acute distress. She is answering questions appropriately. She is awake and alert. VITAL SIGNS: Temperature of 100.9; respiratory rate of 20, it was up to 22; heart rate of 94, it was up to 118; blood pressure of 116/60. HEENT: Unremarkable. NECK: Supple. LUNGS: Decreased breath sounds. HEART: Normal S1 and S2. ABDOMEN: Soft, nontender. No rebound. Has mild tenderness in the left lower quadrant. LABORATORY EXAMINATION: Reveals a white count of 3.4 and hemoglobin of 11, platelets of 133. Coagulation is noted. Chemistries: BUN of 11, creatinine of 0.7. Urinalysis is noted and unremarkable. Microbiology is pending. The patient had a CAT scan of the abdomen and pelvis without p.o. contrast, was given with IV contrast, unremarkable lower thorax, and CAT scan of the abdomen is also unremarkable. The patient had a chest x-ray which was reported to be negative with lungs are clear. ASSESSMENT: A 63-year-old female with non-Hodgkin's lymphoma, history of pulmonary emboli, deep venous thrombosis, hypothyroidism and migraine headaches, presented with a temperature of 100.9 and tachycardia, diarrhea with sepsis secondary to gastroenteritis in an immunocompromised patient. However, we must rule-out Staph bacteremia from a Port-A-Cath as the cause of the fever and the gastrointestinal symptoms as Staph toxin bacteremia can give you diarrhea. Blood cultures are pending. Urine cultures are pending. Stool Clostridium difficile is ordered. Stool cultures . Procalcitonin is pending. We will start the patient on vancomycin. The patient's creatinine is at 0.7. We will administer 1 g of vancomycin IV every 12 hours. In case the patient has bacteremia from her Port-A-Cath, we will also start the patient on Maxipime 1 g IV every 8 hours pending urine cultures and stool cultures, and Flagyl for gastrointestinal coverage, not necessarily for Clostridium difficile, vancomycin, Maxipime, Flagyl, yee-cultures and stool cultures, and we will make further recommendations on the availability of initial results. The patient had an human immunodeficiency virus test in 2013 which was negative. Manuel Velasquez MD
[2018-08-20] MEDS: Cefepime 1gm in NS 100ml 1 GM/100 ML BAG IVPB SCH (05:46)
[2018-08-20] MEDS: metroNIDAZOLE IV 500 mg/100 ml 500 MG/100 ML BAG IVPB SCH (05:46)
[2018-08-20 07:05] LABS: INR 1.77; PROTHROMBIN TIME 20.6 SECONDS (9.4-12.5)
[2018-08-20 07:20] LABS: BASO # 0.01 K/mm3 (0.0-2.0); BASO % 0.4 % (0.0-3.0); EOS # 0.1 (0.0-0.7); EOS % 1.8 % (1.5-5.0); GRAN # 1.51 (1.4-6.5); GRAN % 53.4 % (50.0-68.0); HEMOGLOBIN 10.9 g/dL (12.0-16.0); LYMPH # 0.8 (1.2-3.4); MEAN CELL VOLUME 94.9 fl (80.0-105.0); MEAN CORPUSCULAR HEMOGLOBIN 30.9 pg (25.0-35.0); MEAN CORPUSCULAR HGB CONC 32.5 g/dl (31.0-37.0); MEAN PLATELET VOLUME 9.7 fl (7.0-11.0); MONO # 0.5 (0.1-0.6); MONO % 17.4 % (1.0-6.0); RBC 3.53 10^6/uL (3.5-6.1); RED CELL DISTRIBUTION WIDTH 14.4 % (11.5-14.5); WHITE BLOOD COUNT 2.8 10^3/uL (4.5-11.0)
[2018-08-20 07:35] LABS: ALB/GLOB RATIO 1.3 (1.1-1.8); ALBUMIN 3.1 g/dL (3.0-4.8); ALT/SGPT 41 U/L (7-56); AST/SGOT 33 U/L (14-36); BLOOD UREA NITROGEN 11 mg/dL (7-21); CALCIUM 8.5 mg/dL (8.4-10.5); GFR NON-AFRICAN AMERICAN > 60
[2018-08-20 08:36] VITALS: BP 109/52; PULSE 55; TEMP 97.4; O2SAT 95
[2018-08-20] MEDS: Levothyroxine 150 MCG TAB PO SCH (09:10)
[2018-08-20] MEDS: Metoprolol Succinate 100 mg XL Tab PO SCH (09:10)
--- NOTE | 2018-08-20 09:20 | CP.PCM.DIS ---
<Bashir Osuna - Last Filed: 08/20/18 11:26> Provider - Provider Date of Admission: 08/18/18 18:43 Attending physician: Ajay Fay MD Primary care physician: Belia Crawford MD Consults: Dr. Ulices Velasquez Time Spent in preparation of Discharge (in minutes): 40 Hospital Course - Lab Results Lab Results: Micro Results 08/18/18 19:30 Blood Blood Culture - Preliminary NO GROWTH AFTER 24 HOURS 08/18/18 15:00 Blood Blood Culture - Preliminary NO GROWTH AFTER 24 HOURS Most Recent Lab Values WBC 2.8 10^3/uL (4.5-11.0) L 08/20/18 06:30 RBC 3.53 10^6/uL (3.5-6.1) 08/20/18 06:30 Hgb 10.9 g/dL (12.0-16.0) L 08/20/18 06:30 Hct 33.5 % (36.0-48.0) L 08/20/18 06:30 MCV 94.9 fl (80.0-105.0) 08/20/18 06:30 MCH 30.9 pg (25.0-35.0) 08/20/18 06:30 MCHC 32.5 g/dl (31.0-37.0) 08/20/18 06:30 RDW 14.4 % (11.5-14.5) 08/20/18 06:30 Plt Count 137 10^3/uL (120.0-450.0) 08/20/18 06:30 MPV 9.7 fl (7.0-11.0) 08/20/18 06:30 Gran % 53.4 % (50.0-68.0) 08/20/18 06:30 Lymph % (Auto) 27.0 % (22.0-35.0) 08/20/18 06:30 [place] % (Auto) 17.4 % (1.0-6.0) H 08/20/18 06:30 Eos % (Auto) 1.8 % (1.5-5.0) 08/20/18 06:30 Baso % (Auto) 0.4 % (0.0-3.0) 08/20/18 06:30 Gran # 1.51 (1.4-6.5) 08/20/18 06:30 Lymph # (Auto) 0.8 (1.2-3.4) L 08/20/18 06:30 [place] # (Auto) 0.5 (0.1-0.6) 08/20/18 06:30 Eos # (Auto) 0.1 (0.0-0.7) 08/20/18 06:30 Baso # (Auto) 0.01 K/mm3 (0.0-2.0) 08/20/18 06:30 PT 20.6 SECONDS (9.4-12.5) H 08/20/18 06:30 INR 1.77 08/20/18 06:30 APTT 35.1 Seconds (25.1-36.5) 08/18/18 19:30 pO2 50 mm/Hg (30-55) 08/18/18 23:10 VBG pH 7.38 (7.32-7.43) 08/18/18 23:10 VBG pCO2 41.0 (40-60) 08/18/18 23:10 VBG HCO3 24.3 mmol/l (21-28) 08/18/18 23:10 VBG Total CO2 25.6 mmol.L (22-28) 08/18/18 23:10 VBG O2 Sat (Calc) 88.1 % (40-65) H 08/18/18 23:10 VBG Base Excess -0.8 mmol/L (0.0-2.0) L 08/18/18 23:10 VBG Potassium 3.3 mmol/L (3.6-5.2) L 08/18/18 23:10 Sodium 141.0 mmol/L (132-148) 08/18/18 23:10 Chloride 108.0 mmol/L (98-107) H 08/18/18 23:10 Glucose 105 mg/dl (65-105) 08/18/18 23:10 Lactate 1.0 mmol/L (0.7-2.1) 08/18/18 23:10 FiO2 21.0 % 08/18/18 23:10 Sodium 141 mmol/L (132-148) 08/20/18 06:30 Potassium 3.6 mmol/L (3.6-5.0) 08/20/18 06:30 Chloride 111 mmol/L (98-107) H 08/20/18 06:30 Carbon Dioxide 25 mmol/L (21-33) 08/20/18 06:30 Anion Gap 9 (10-20) L 08/20/18 06:30 BUN 11 mg/dL (7-21) 08/20/18 06:30 Creatinine 0.7 mg/dl (0.7-1.2) 08/20/18 06:30 Est GFR ( Amer) > 60 08/20/18 06:30 Est GFR (Non-Af Amer) > 60 08/20/18 06:30 Random Glucose 106 mg/dL (70-110) 08/20/18 06:30 Calcium 8.5 mg/dL (8.4-10.5) 08/20/18 06:30 Total Bilirubin 0.4 mg/dL (0.2-1.3) 08/20/18 06:30 AST 33 U/L (14-36) 08/20/18 06:30 ALT 41 U/L (7-56) 08/20/18 06:30 Alkaline Phosphatase 85 U/L (38-126) 08/20/18 06:30 Troponin I < 0.01 ng/mL 08/18/18 15:34 Total Protein 5.5 g/dL (5.8-8.3) L 08/20/18 06:30 Albumin 3.1 g/dL (3.0-4.8) 08/20/18 06:30 Globulin 2.4 gm/dL 08/20/18 06:30 Albumin/Globulin Ratio 1.3 (1.1-1.8) 08/20/18 06:30 Lipase 167 U/L (23-300) 08/18/18 15:34 Procalcitonin 0.13 NG/ML (0.19-0.49) L 08/19/18 09:40 Venous Blood Potassium 3.3 mmol/L (3.6-5.2) L 08/18/18 23:10 Urine Color Yellow (YELLOW) 08/18/18 17:50 Urine Appearance Clear (CLEAR) 08/18/18 17:50 Urine pH 6.0 (4.7-8.0) 08/18/18 17:50 Ur Specific [place] 1.010 (1.005-1.035) 08/18/18 17:50 Urine Protein Negative mg/dL (<30 mg/dL) 08/18/18 17:50 Urine Glucose (UA) Negative mg/dL (NEGATIVE) 08/18/18 17:50 Urine Ketones Negative mg/dL (NEGATIVE) 08/18/18 17:50 Urine Blood Negative (NEGATIVE) 08/18/18 17:50 Urine Nitrate Negative (NEGATIVE) 08/18/18 17:50 Urine Bilirubin Negative (NEGATIVE) 08/18/18 17:50 Urine Urobilinogen 0.2 E.U./dL (<1 E.U./dL) 08/18/18 17:50 Ur Leukocyte Esterase Negative [place]anza/uL (NEGATIVE) 08/18/18 17:50 - Hospital Course Hospital Course: 63 year old female with a past medical history of 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 She reports no sick contacts at home and eating nothing out of the ordinary. She does have a port-a-cath and received her last infusion of Rituximab 3 weeks ago. She was also found to have an elevated lactate on admission and was started on broad spectrum antibiotics. She reports having four episodes of diarrhea since admission. In the ED, CT of the A/P with IV contrast showed hepatomegaly and splenomegaly. At the time of my encounter she admits to nausea, diarrhea, and left upper quadrant abdominal pain. She denies fevers since being given the antibiotics and anti-emetics. Infectious Disease was consulted who started the patient on Vancomycin, Cefepime, and Flagyl. Also, hematology and Oncology was consulted and made no recommendations. The patient's home medications were resumed. The patient's blood cultures were negative x 2. Urine cultures were also negative. The patients abdominal pain, nausea, vomiting, and fevers resolved by day 2 and 3 of her hospital stay. She was able to tolerate a regular diet and was discharged with the below written instructions and recommendations. - Date & Time of H&P Date of H&P: 08/20/18 Time of H&P: 11:27 Discharge Exam - Head Exam Head Exam: ATRAUMATIC, NORMOCEPHALIC - Eye Exam Eye Exam: EOMI, Normal appearance - ENT Exam ENT Exam: Mucous Membranes Moist, Normal Oropharynx - Neck Exam Neck exam: Normal Inspection - Respiratory Exam Respiratory Exam: Clear to PA & Lateral, NORMAL BREATHING PATTERN. absent: Accessory Muscle Use - Cardiovascular Exam Cardiovascular Exam: RRR, +S1, +S2 - GI/Abdominal Exam GI & Abdominal Exam: Normal Bowel Sounds. absent: Guarding, Rebound - Extremities Exam Extremities exam: normal inspection - Back Exam Back exam: absent: CVA tenderness (L), CVA tenderness (R) - Neurological Exam Neurological exam: Alert, CN II-XII Intact, Oriented x3 - Psychiatric Exam Psychiatric exam: Normal Affect, Normal Mood - Skin Skin Exam: Dry, Intact, Normal Color, Warm Discharge Plan - Follow Up Plan Condition: STABLE Disposition: HOME/ ROUTINE Instructions: Viral Gastroenteritis Additional Instructions: 1) Please follow up with your PMD within one week of discharge. 2) Please take all medications as prescribed. 3) Please return to the ED for any return of symptoms. Referrals: Belia Crawford MD [Primary Care Provider] - <Ajay Fay - Last Filed: 08/20/18 19:45> Provider - Provider Date of Admission: 08/18/18 18:43 Attending physician: Ajay Fay MD Primary care physician: Belia Crawford MD Hospital Course - Lab Results Lab Results: Micro Results 08/18/18 17:50 Urine Urine Culture - Final <10,000 CFU/ML. MULTIPLE SPECIES. PROBABLE CONTAMINATION. 08/18/18 19:30 Blood Blood Culture - Preliminary NO GROWTH AFTER 24 HOURS 08/18/18 15:00 Blood Blood Culture - Preliminary NO GROWTH AFTER 24 HOURS Most Recent Lab Values WBC 2.8 10^3/uL (4.5-11.0) L 08/20/18 06:30 RBC 3.53 10^6/uL (3.5-6.1) 08/20/18 06:30 Hgb 10.9 g/dL (12.0-16.0) L 08/20/18 06:30 Hct 33.5 % (36.0-48.0) L 08/20/18 06:30 MCV 94.9 fl (80.0-105.0) 08/20/18 06:30 MCH 30.9 pg (25.0-35.0) 08/20/18 06:30 MCHC 32.5 g/dl (31.0-37.0) 08/20/18 06:30 RDW 14.4 % (11.5-14.5) 08/20/18 06:30 Plt Count 137 10^3/uL (120.0-450.0) 08/20/18 06:30 MPV 9.7 fl (7.0-11.0) 08/20/18 06:30 Gran % 53.4 % (50.0-68.0) 08/20/18 06:30 Lymph % (Auto) 27.0 % (22.0-35.0) 08/20/18 06:30 [place] % (Auto) 17.4 % (1.0-6.0) H 08/20/18 06:30 Eos % (Auto) 1.8 % (1.5-5.0) 08/20/18 06:30 Baso % (Auto) 0.4 % (0.0-3.0) 08/20/18 06:30 Gran # 1.51 (1.4-6.5) 08/20/18 06:30 Lymph # (Auto) 0.8 (1.2-3.4) L 08/20/18 06:30 [place] # (Auto) 0.5 (0.1-0.6) 08/20/18 06:30 Eos # (Auto) 0.1 (0.0-0.7) 08/20/18 06:30 Baso # (Auto) 0.01 K/mm3 (0.0-2.0) 08/20/18 06:30 PT 20.6 SECONDS (9.4-12.5) H 08/20/18 06:30 INR 1.77 08/20/18 06:30 APTT 35.1 Seconds (25.1-36.5) 08/18/18 19:30 pO2 50 mm/Hg (30-55) 08/18/18 23:10 VBG pH 7.38 (7.32-7.43) 08/18/18 23:10 VBG pCO2 41.0 (40-60) 08/18/18 23:10 VBG HCO3 24.3 mmol/l (21-28) 08/18/18 23:10 VBG Total CO2 25.6 mmol.L (22-28) 08/18/18 23:10 VBG O2 Sat (Calc) 88.1 % (40-65) H 08/18/18 23:10 VBG Base Excess -0.8 mmol/L (0.0-2.0) L 08/18/18 23:10 VBG Potassium 3.3 mmol/L (3.6-5.2) L 08/18/18 23:10 Sodium 141.0 mmol/L (132-148) 08/18/18 23:10 Chloride 108.0 mmol/L (98-107) H 08/18/18 23:10 Glucose 105 mg/dl (65-105) 08/18/18 23:10 Lactate 1.0 mmol/L (0.7-2.1) 08/18/18 23:10 FiO2 21.0 % 08/18/18 23:10 Sodium 141 mmol/L (132-148) 08/20/18 06:30 Potassium 3.6 mmol/L (3.6-5.0) 08/20/18 06:30 Chloride 111 mmol/L (98-107) H 08/20/18 06:30 Carbon Dioxide 25 mmol/L (21-33) 08/20/18 06:30 Anion Gap 9 (10-20) L 08/20/18 06:30 BUN 11 mg/dL (7-21) 08/20/18 06:30 Creatinine 0.7 mg/dl (0.7-1.2) 08/20/18 06:30 Est GFR ( Amer) > 60 08/20/18 06:30 Est GFR (Non-Af Amer) > 60 08/20/18 06:30 Random Glucose 106 mg/dL (70-110) 08/20/18 06:30 Calcium 8.5 mg/dL (8.4-10.5) 08/20/18 06:30 Total Bilirubin 0.4 mg/dL (0.2-1.3) 08/20/18 06:30 AST 33 U/L (14-36) 08/20/18 06:30 ALT 41 U/L (7-56) 08/20/18 06:30 Alkaline Phosphatase 85 U/L (38-126) 08/20/18 06:30 Troponin I < 0.01 ng/mL 08/18/18 15:34 Total Protein 5.5 g/dL (5.8-8.3) L 08/20/18 06:30 Albumin 3.1 g/dL (3.0-4.8) 08/20/18 06:30 Globulin 2.4 gm/dL 08/20/18 06:30 Albumin/Globulin Ratio 1.3 (1.1-1.8) 08/20/18 06:30 Lipase 167 U/L (23-300) 08/18/18 15:34 Procalcitonin 0.13 NG/ML (0.19-0.49) L 08/19/18 09:40 Venous Blood Potassium 3.3 mmol/L (3.6-5.2) L 08/18/18 23:10 Urine Color Yellow (YELLOW) 08/18/18 17:50 Urine Appearance Clear (CLEAR) 08/18/18 17:50 Urine pH 6.0 (4.7-8.0) 08/18/18 17:50 Ur Specific [place] 1.010 (1.005-1.035) 08/18/18 17:50 Urine Protein Negative mg/dL (<30 mg/dL) 08/18/18 17:50 Urine Glucose (UA) Negative mg/dL (NEGATIVE) 08/18/18 17:50 Urine Ketones Negative mg/dL (NEGATIVE) 08/18/18 17:50 Urine Blood Negative (NEGATIVE) 08/18/18 17:50 Urine Nitrate Negative (NEGATIVE) 08/18/18 17:50 Urine Bilirubin Negative (NEGATIVE) 08/18/18 17:50 Urine Urobilinogen 0.2 E.U./dL (<1 E.U./dL) 08/18/18 17:50 Ur Leukocyte Esterase Negative [place]/uL (NEGATIVE) 08/18/18 17:50 - Hospital Course Hospital Course: Pt seen and examined. I have reviewed the note of the medical economics consultant and agree with it. I have discussed the assessment and plan with the resident. I have reviewed the patient's labs and medications. Pt had Gastroenteritis and that has resolved. Pt is on Coumadin for her PE. Her BCx is negative. ID has cleared the pt to go home. No need for Abx. She feels better. She is being treated for her Marginal Lymphoma. A fib controlled. hypothyroidism being treated with medications.
--- NOTE | 2018-08-20 14:37 | PN ---
DATE: 08/20/2018 SUBJECTIVE: The patient is in bed, in no acute distress, nontoxic. No fevers and chills. PHYSICAL EXAMINATION: VITAL SIGNS: Temperature is 98, blood pressure is 112/70, respiratory rate of 16. HEENT: Unremarkable. NECK: Supple. LUNGS: Have decreased breath sounds. HEART: Normal S1, S2. ABDOMEN: Soft. LABORATORY EXAMINATION: Reveals the patient to have a white count of 2.8, chemistries are noted. Procalcitonin is 0.13. Urinalysis is noted. The patient's HIV in 2013, which was negative. Microbiology reveals the blood cultures are negative. Urine cultures are noted. ASSESSMENT AND PLAN: The patient seen earlier this morning in room 374. She is anxious to be discharged. She wants to be discharged. and son at the bedside. She has past medical history of hypertension, migraine headache, hypothyroidism, gastroesophageal reflux disease, deep vein thrombosis, pulmonary emboli, congestive heart failure, admitted to the emergency room with nausea, vomiting, gastroenteritis, feeling much much better today with negative cultures and the patient will follow up with her PMD. We will check on the stool cultures. Manuel Velasquez MD
== END 2018-08-20 10:50 | disposition home or self-care (01) ==
LOC: ED 14:13 → ERH 18:43 → 3RSO 21:43
PROVIDERS: ADMIT Internal Medicine Nephrology; ATTEND Internal Medicine Nephrology
DX: K52.9 Noninfective gastroenteritis and colitis, unspecified (principal); C85.90 Non-Hodgkin lymphoma, unspecified, unspecified site; D64.9 Anemia, unspecified; D68.9 Coagulation defect, unspecified; D89.9 Disorder involving the immune mechanism, unspecified; E89.0 Postprocedural hypothyroidism; I11.0 Hypertensive heart disease with heart failure; I48.91 Unspecified atrial fibrillation; I50.9 Heart failure, unspecified; K21.9 Gastro-esophageal reflux disease without esophagitis; Z79.01 Long term (current) use of anticoagulants; Z80.3 Family history of malignant neoplasm of breast; Z86.711 Personal history of pulmonary embolism; Z86.718 Personal history of other venous thrombosis and embolism; Z90.49 Acquired absence of other specified parts of digestive tract; Z88.1 Allergy status to other antibiotic agents
CPT/HCPCS: 36415; 71045; 74177; 80053; 81003; 82803; 83690; 84145; 84484; 85025; 85027; 85610; 85730; 87040; 87086; 93005; 96361; 96365; 96366; 96367; 96368; 96375; 96376; 99285; G0378; J0692; J2405; J7030; Q9967

== ENCOUNTER 2018-11-11 15:14 | Emergency (ER) | payer BC, OTHER ==
[2018-11-11 15:24] VITALS: RESP 18; BMI 48.5
[2018-11-11] MEDS ORDERED: Sodium Chloride 0.9% 1,000 ML IV ONE (16:17)
--- NOTE | 2018-11-11 17:12 | RAD ---
Date of service: 11/11/2018 HISTORY: r/o infiltrate COMPARISON: Chest radiograph dated 08/18/2018. FINDINGS: LUNGS: No active pulmonary disease. PLEURA: No significant pleural effusion identified, no pneumothorax apparent. CARDIOVASCULAR: Aortic atherosclerotic calcifications. Cardiomediastinal silhouette stably prominent OSSEOUS STRUCTURES: Unchanged. VISUALIZED UPPER ABDOMEN: Normal. OTHER FINDINGS: Right internal jugular access central venous catheter, unchanged.. IMPRESSION: No active disease.
[2018-11-11 17:18] LABS: BASO # 0.02 K/mm3 (0.0-2.0); BASO % 0.3 % (0.0-3.0); EOS % 0.6 % (1.5-5.0); GRAN # 6.09 (1.4-6.5); GRAN % 85.7 % (50.0-68.0); HEMOGLOBIN 13.4 g/dL (12.0-16.0); LYMPH # 0.6 (1.2-3.4); LYMPH % 8.2 % (22.0-35.0); MEAN CELL VOLUME 94.2 fl (80.0-105.0); MEAN CORPUSCULAR HEMOGLOBIN 31.2 pg (25.0-35.0); MEAN CORPUSCULAR HGB CONC 33.1 g/dl (31.0-37.0); MEAN PLATELET VOLUME 10.1 fl (7.0-11.0); MONO # 0.4 (0.1-0.6); MONO % 5.2 % (1.0-6.0); RBC 4.3 10^6/uL (3.5-6.1); WHITE BLOOD COUNT 7.1 10^3/uL (4.5-11.0)
[2018-11-11 17:29] LABS: ALB/GLOB RATIO 1.5 (1.1-1.8); ALBUMIN 4.4 g/dL (3.0-4.8); ALT/SGPT 52 U/L (7-56); AST/SGOT 62 U/L (14-36); BLOOD UREA NITROGEN 13 mg/dL (7-21); CALCIUM 9.7 mg/dL (8.4-10.5); GFR NON-AFRICAN AMERICAN > 60
[2018-11-11 18:55] VITALS: BP 128/63; PULSE 92; TEMP 99.2; O2SAT 97
--- NOTE | 2018-11-11 19:27 | ED PDOC ---
Arrival/HPI - General Chief Complaint: Fever Historian: Patient - History of Present Illness Narrative History of Present Illness (Text): 11/11/18 19:27 A 63 year old female, whose past medical history includes NHL (diagnosed 1 year ago, last chemo January 2018, in remission), Afib, PE/DVT, Morbid obesity, GERD, Hypothyroidism, cholecystectomy, presents to the emergency department complaining of fever, mild headache, and cough with whitish-yellowish sputum. Patient reports headache is not the worst in her life. States she took her temperature at home, which measured to 101. Denies taking any medication for symptoms. Patient denies any other complaints at this time. Admits to getting flu shot. PMD: Dr. Jolie Monge Past Medical History - Provider Review Nursing Documentation Reviewed: Yes - Infectious Disease Hx of Infectious Diseases: None - Reproductive Menopause: Yes - Cardiac Hx Pacemaker: No - Pulmonary Hx Respiratory Disorders: Yes - Neurological Hx Paralysis: No - HEENT Hx HEENT Disorder: Yes Hx Cataracts: Yes (Cataract sx) - Renal Hx Renal Disorder: No - Endocrine/Metabolic Hx Hypothyroidism: Yes - Hematological/Oncological Hx Blood Transfusions: Yes Hx Blood Transfusion Reaction: No - Integumentary Hx Dermatological Disorder: No - Musculoskeletal/Rheumatological Hx Musculoskeletal Disorders: No - Gastrointestinal Hx Gastrointestinal Disorders: Yes Hx Gastroesophageal Reflux: Yes - Genitourinary/Gynecological Hx Genitourinary Disorders: No - Psychiatric Hx Emotional Abuse: No Hx Physical Abuse: No Hx Substance Use: No - Surgical History Hx Cholecystectomy: Yes - Anesthesia Hx Anesthesia Reactions: No Hx Malignant Hyperthermia: No - Suicidal Assessment Feels Threatened In Home Enviroment: No Family/Social History - Physician Review Nursing Documentation Reviewed: Yes Family/Social History: No Known Family HX Smoking Status: Never Smoked Hx Alcohol Use: No Hx Substance Use: No Hx Substance Use Treatment: No Allergies/Home Meds Allergies/Adverse Reactions: Allergies erythromycin base Allergy (Severe, Verified 08/18/18 19:54) URTICARIA Home Medications: Home Meds Medication Instructions Recorded Confirmed Metoprolol Succinate XL [Toprol XL] 100 mg PO QAM 03/10/12 08/18/18 Levothyroxine [Synthroid] 150 mcg PO DAILY 06/23/16 08/18/18 Cyanocobalamin (Vitamin B-12) 100 mcg PO DAILY 07/09/16 08/18/18 [Vitamin B-12] Folic Acid 1 mg PO DAILY 07/09/16 08/18/18 Pantoprazole Sodium [Protonix] 40 mg PO DAILY 07/08/17 08/18/18 hydroCHLOROthiazide [Microzide] 12.5 mg PO DAILY 07/08/17 08/18/18 PrednisoLONE 1% [Pred Forte 1% 1 drop RIGHTEYE BID 09/17/17 08/18/18 Opht Susp] Warfarin [Coumadin] 4 mg PO DAILY 09/25/17 08/18/18 Metoprolol Succinate 50 mg PO QPM 02/09/18 08/18/18 valACYclovir [Valtrex] 500 tab PO DAILY 02/09/18 08/18/18 Enoxaparin [Lovenox] 100 mg SC BID 02/12/18 08/18/18 Warfarin [Coumadin] 3 mg PO TTS 08/18/18 08/18/18 Review of Systems - Physician Review All systems were reviewed & negative as marked: Yes - Review of Systems Constitutional: Fevers Respiratory: Cough, Sputum (whitish-yellowish sputum) Neurological: Headache (mild, not worse of her life.) Physical Exam Vital Signs Reviewed: Yes Vital Signs Temp Pulse Resp BP Pulse Ox 11/11/18 18:54 99.2 F 92 H 18 128/63 97 11/11/18 15:22 100.4 F H 116 H 18 146/82 95 Temperature: Febrile Blood Pressure: Normal Pulse: Regular Respiratory Rate: Normal Appearance: Positive for: Well-Appearing, Non-Toxic, Comfortable Pain Distress: None Mental Status: Positive for: Alert and Oriented X 3 - Systems Exam Head: Present: Atraumatic, Normocephalic Pupils: Present: PERRL Extroacular Muscles: Present: EOMI Conjunctiva: Present: Normal Mouth: Present: Moist Mucous Membranes Neck: Present: Normal Range of Motion Respiratory/Chest: Present: Clear to Auscultation, Good Air Exchange. No: Respiratory Distress, Accessory Muscle Use Cardiovascular: Present: Regular Rate and Rhythm, Normal S1, S2. No: Murmurs Abdomen: No: Tenderness, Distention, Peritoneal Signs Back: Present: Normal Inspection Upper Extremity: Present: Normal Inspection. No: Cyanosis, Edema Lower Extremity: Present: Normal Inspection. No: Edema Neurological: Present: GCS=15, CN II-XII Intact, Speech Normal Skin: Present: Warm (warm to touch), Dry, Normal Color. No: Rashes Psychiatric: Present: Alert, Oriented x 3, Normal Insight, Normal Concentration Medical Decision Making ED Course and Treatment: 11/11/18 19:28 Impression: 63 year old female with fever, mild headache, and cough with whitish-yellowish sputum. Plan: -- Chest X-ray -- Labs -- Urinalysis -- Urine Culture -- IV Fluids -- Zofran -- Tylenol -- Influenza AB Test -- Reassess and disposition Prior Visits: Notes and results from previous visits were reviewed. Patient was last seen here in the emergency department on 08/18/2018 for vomiting and diarrhea with mild left sided abdominal pain. Patient was admitted for gastroenteritis. Progress Notes: 11/11/2018 17:08 Chest X-ray IMPRESSION: No active disease. Dictator: Darren Stafford MD 11/11/18 17:[address] crawford, agrees to have patient discharged with prescription for Tamiflu. Patient to follow-up with Dr. Crawford in a few days. - Lab Interpretations Lab Results: Total Bilirubin 0.5 mg/dL (0.2-1.3) 11/11/18 17:12 AST 62 U/L (14-36) H D 11/11/18 17:12 ALT 52 U/L (7-56) 11/11/18 17:12 Alkaline Phosphatase 105 U/L (38-126) 11/11/18 17:12 Total Protein 7.2 g/dL (5.8-8.3) 11/11/18 17:12 Albumin 4.4 g/dL (3.0-4.8) 11/11/18 17:12 Globulin 2.8 gm/dL 11/11/18 17:12 Albumin/Globulin Ratio 1.5 (1.1-1.8) 11/11/18 17:12 I have reviewed the lab results: Yes - RAD Interpretation Radiology Orders: 11/11/18 16:06 CHEST PORTABLE [RAD] Stat - Medication Orders Current Medication Orders: Discontinued Medications Acetaminophen (Tylenol 325mg Tab) 650 mg PO STAT STA Stop: 11/11/18 16:08 Last Admin: 11/11/18 16:49 Dose: 650 mg Azithromycin (Zithromax) 500 mg PO STAT STA; Protocol Stop: 11/11/18 17:53 Last Admin: 11/11/18 18:35 Dose: 500 mg Sodium Chloride (Sodium Chloride 0.9%) 1,000 mls @ 250 mls/hr IV .Q4H ONE Stop: 11/11/18 20:16 Last Admin: 11/11/18 16:48 Dose: 250 mls/hr eMAR Start Stop Document 11/11/18 16:48 EQ (Rec: 11/11/18 16:49 EQ [facility] [id number] Intravenous Solution Start Date 11/11/18 Start Time 16:48 Ondansetron HCl (Zofran Inj) 4 mg IVP STAT STA Stop: 11/11/18 16:47 Last Admin: 11/11/18 16:49 Dose: 4 mg IVP Administration Document 11/11/18 16:49 EQ (Rec: 11/11/18 16:49 EQ [facility] [id number] Charges for Administration # of IVP Administrations 1 Oseltamivir Phosphate (Tamiflu Cap) 75 mg PO BID [facility]; Protocol Stop: 11/16/18 17:52 Last Admin: 11/11/18 18:35 Dose: 75 mg - Scribe Statement The provider has reviewed the documentation as recorded by the Edmond Hoffman Provider Scribe Attestation: All medical record entries made by the Sarahibjeaneth were at my direction and pers onally dictated by me. I have reviewed the chart and agree that the record accurately reflects my personal performance of the history, physical exam, medical decision making, and the department course for this patient. I have also personally directed, reviewed, and agree with the discharge instructions and disposition. Disposition/Present on Arrival - Present on Arrival Any Indicators Present on Arrival: No History of DVT/PE: Yes History of Uncontrolled Diabetes: No Urinary Catheter: No History of Decub. Ulcer: No History Surgical Site Infection Following: None - Disposition Have Diagnosis and Disposition been Completed?: Yes Diagnosis: Viral syndrome Disposition: HOME/ ROUTINE Disposition Time: 17:30 Condition: IMPROVED Discharge Instructions (ExitCare): Viral Syndrome (DC) Additional Instructions: ROBERTO MARTINEZ, thank you for letting us take care of you today. The emergency medical care you received today was directed at your acute symptoms. If you were prescribed any medication, please fill it and take as directed. It may take several days for your symptoms to resolve. Return to the Emergency Department if your symptoms worsen, do not improve, or if you have any other pro blems. Please contact your doctor or call one of the physicians/clinics you have been referred to that are listed on the Patient Visit Information form that is included in your discharge packet. Bring any paperwork you were given at discharge with you along with any medications you are taking to your follow up visit. Our treatment cannot replace ongoing medical care by a primary care provider outside of the emergency department. Thank you for allowing the [facility] team to be part of your care today. Follow up with Dr. Crawford in 2-3 days for re-evaluation and further management. Prescriptions: Azithromycin [Zithromax] 250 mg PO DAILY #4 tab Ondansetron ODT [Zofran ODT] 8 mg PO Q8 PRN #20 odt PRN Reason: Nausea/Vomiting Oseltamivir Phosphate [Tamiflu] 75 mg PO BID #9 capsule Referrals: Belia Crawford MD [Staff Provider] - Follow up with primary Forms: [employer] (Georgian)
== END 2018-11-11 18:55 | disposition home or self-care (01) ==
LOC: ED 15:14
DX: B34.9 Viral infection, unspecified (principal); E66.01 Morbid (severe) obesity due to excess calories; E03.9 Hypothyroidism, unspecified; I48.91 Unspecified atrial fibrillation; Z85.72 Personal history of non-Hodgkin lymphomas
CPT/HCPCS: 71045; 80053; 85025; 87804; 96374; 99284; J2405; J7030

== ENCOUNTER 2018-12-06 09:00 | Outpatient (CLI) | payer BC, OTHER | END 2018-12-06 09:01 | disposition home or self-care (01) | LOC: PET-BROA 09:00 ==

== ENCOUNTER 2018-12-27 15:27 | Emergency (ER) | payer BC, OTHER ==
[2018-12-27 15:27] VITALS: BMI 48.5
[2018-12-27 16:54] VITALS: RESP 18
[2018-12-27] MEDS ORDERED: Lidocaine 5% Patch TD ONE (17:08)
--- NOTE | 2018-12-27 17:15 | ED PDOC ---
Arrival/HPI - General Chief Complaint: Back Pain Time Seen by Provider: 12/27/18 16:05 Historian: Patient - History of Present Illness Narrative History of Present Illness (Text): 12/27/18 17:11 63 year old F with a PMH of NHL (diagnosed 1 year ago, last chemo January 2018, in remission), Afib, PE/DVT, Morbid obesity, GERD, Hypothyroidism, cholecystectomy presents to the Emergency department complaining of worsening upper thoracic left sided back pain x1wk and R. ankle stiffness x2days. Patient mentioned that she used a heating pad and took tylenol to alleviate the back pain. Patient denies any fevers, chills, headache, dizziness, chest pain, shortness of breath, dyspnea on exertion, cough, abdominal pain, nausea, vomiting, diarrhea, neck pain, or any other complaint. Time/Duration: < week Symptom Onset: Gradual Symptom Course: Worsening Activities at Onset: Light Context: Home Past Medical History - Provider Review Nursing Documentation Reviewed: Yes - Infectious Disease Hx of Infectious Diseases: None - Cardiac Hx Pacemaker: No - Pulmonary Hx Respiratory Disorders: Yes - Neurological Hx Paralysis: No - HEENT Hx HEENT Disorder: Yes Hx Cataracts: Yes (Cataract sx) - Renal Hx Renal Disorder: No - Endocrine/Metabolic Hx Hypothyroidism: Yes - Hematological/Oncological Hx Blood Transfusions: Yes Hx Blood Transfusion Reaction: No - Integumentary Hx Dermatological Disorder: No - Musculoskeletal/Rheumatological Hx Musculoskeletal Disorders: No - Gastrointestinal Hx Gastrointestinal Disorders: Yes Hx Gastroesophageal Reflux: Yes - Genitourinary/Gynecological Hx Genitourinary Disorders: No - Psychiatric Hx Emotional Abuse: No Hx Physical Abuse: No Hx Substance Use: No - Surgical History Hx Cholecystectomy: Yes - Anesthesia Hx Anesthesia: Yes Hx Anesthesia Reactions: No Hx Malignant Hyperthermia: No - Suicidal Assessment Feels Threatened In Home Enviroment: No Family/Social History - Physician Review Nursing Documentation Reviewed: Yes Family/Social History: No Known Family HX Smoking Status: Never Smoked Hx Alcohol Use: No Hx Substance Use: No Hx Substance Use Treatment: No Allergies/Home Meds Allergies/Adverse Reactions: Allergies erythromycin base Allergy (Severe, Verified 08/18/18 19:54) URTICARIA Home Medications: Home Meds Medication Instructions Recorded Confirmed Metoprolol Succinate XL [Toprol XL] 100 mg PO QAM 03/10/12 08/18/18 Levothyroxine [Synthroid] 150 mcg PO DAILY 06/23/16 08/18/18 Cyanocobalamin (Vitamin B-12) 100 mcg PO DAILY 07/09/16 08/18/18 [Vitamin B-12] Folic Acid 1 mg PO DAILY 07/09/16 08/18/18 Pantoprazole Sodium [Protonix] 40 mg PO DAILY 07/08/17 08/18/18 hydroCHLOROthiazide [Microzide] 12.5 mg PO DAILY 07/08/17 08/18/18 PrednisoLONE 1% [Pred Forte 1% 1 drop RIGHTEYE BID 09/17/17 08/18/18 Opht Susp] Warfarin [Coumadin] 4 mg PO DAILY 09/25/17 08/18/18 Metoprolol Succinate 50 mg PO QPM 02/09/18 08/18/18 valACYclovir [Valtrex] 500 tab PO DAILY 02/09/18 08/18/18 Enoxaparin [Lovenox] 100 mg SC BID 02/12/18 08/18/18 Warfarin [Coumadin] 3 mg PO TTS 08/18/18 08/18/18 Review of Systems - Physician Review All systems were reviewed & negative as marked: Yes - Review of Systems Constitutional: absent: Fatigue Respiratory: absent: SOB, Cough, Wheezing Cardiovascular: absent: Chest Pain Gastrointestinal: absent: Abdominal Pain, Diarrhea, Nausea, Vomiting Musculoskeletal: Arthralgias (R. ankle stiffness), Back Pain (upper thoracic left sided) Neurological: absent: Headache, Dizziness Physical Exam Vital Signs Reviewed: Yes Vital Signs Temp Pulse Resp BP Pulse Ox 12/27/18 15:28 97.3 F L 64 18 144/84 98 Temperature: Afebrile Blood Pressure: Normal Pulse: Regular Respiratory Rate: Normal Appearance: Positive for: Well-Appearing Pain Distress: Moderate Mental Status: Positive for: Alert and Oriented X 3 - Systems Exam Head: Present: Atraumatic, Normocephalic Neck: Present: Normal Range of Motion Respiratory/Chest: Present: Clear to Auscultation, Good Air Exchange. No: Re spiratory Distress Cardiovascular: Present: Regular Rate and Rhythm, Normal S1, S2 Lower Extremity: Present: NORMAL PULSES (Intact dorsal,pedal pulse), Tenderness (Tenderness to palpation to lateral malleolus), Other. No: Edema, Swelling, Erythema Neurological: Present: GCS=15, Speech Normal Skin: Present: Warm Psychiatric: Present: Alert, Oriented x 3, Normal Insight, Normal Concentration Medical Decision Making ED Course and Treatment: 12/27/18 17:32 Impression: 63 year old F presents to the Emergency department complaining of worsening upper thoracic left sided back pain x1wk and R. ankle stiffness x2days Differential Diagnosis included but are not limited to: Plan: --Thoracic Spine CT w/o contrast --Labs --EKG --Chest X-ray --Tylenol --Valium --Lidoderm --Right ANkle Xray -- Reassess and disposition Prior Visits: Notes and results from previous visits were reviewed. Progress Notes: 12/27/18 19:03 Review of XR shows no evidence of fracture or dislocation. CT thoarcic shows no compression fractures or disclocations. Discussed case with Dr. Crawford(oncology) who states patient may follow up with her in office. Patient reevaluated and reports improvement in symptoms. She - PA / ASSISTED LIVING NURSING DIRECTOR / Resident Statement MD/DO has reviewed & agrees with the documentation as recorded. - Scribe Statement The provider has reviewed the documentation as recorded by the Edmond Brush All medical record entries made by the Sarahibjeaneth were at my direction and personally dictated by me. I have reviewed the chart and agree that the record accurately reflects my personal performance of the history, physical exam, medical decision making, and the department course for this patient. I have also personally directed, reviewed, and agree with the discharge instructions and disposition. Disposition/Present on Arrival - Present on Arrival Any Indicators Present on Arrival: Yes History of DVT/PE: Yes History of Uncontrolled Diabetes: No Urinary Catheter: No History of Decub. Ulcer: No History Surgical Site Infection Following: None - Disposition Have Diagnosis and Disposition been Completed?: Yes Diagnosis: Musculoskeletal back pain, Ankle pain, right Disposition: HOME/ ROUTINE Disposition Time: 18:57 Patient Plan: Discharge Condition: IMPROVED Discharge Instructions (ExitCare): Upper Back Pain (DC) Print Language: TANZANIAN Additional Instructions: All medical record entries made by the Sarahibjeaneth were at my direction and personally dictated by me. I have reviewed the chart and agree that the record accurately reflects my personal performance of the history, physical exam, medical decision making, and the department course for this patient. I have also personally directed, reviewed, and agree with the discharge instructions and disposition. Please take analgesics for pain as needed Try to schedule an appointment with a furniture painter Prescriptions: Diazepam [Valium] 2 mg PO Q6 #6 tablet Lidocaine 5% [Lidoderm] 1 ea TD Q12H #5 patch Referrals: Vish Johnson [Primary Care Provider] - Follow up with primary Nicole Horton MD [Medical Doctor] - Follow up with primary Belia Crawford MD [Staff Provider] - Follow up with primary Forms: CS-Keys (Urdu)
[2018-12-27 17:52] LABS: BASO # 0.02 K/mm3 (0.0-2.0); BASO % 0.3 % (0.0-3.0); EOS # 0.1 (0.0-0.7); EOS % 0.8 % (1.5-5.0); HEMOGLOBIN 12.8 g/dL (12.0-16.0); LYMPH # 1.3 (1.2-3.4); LYMPH % 20.9 % (22.0-35.0); MEAN CELL VOLUME 94.4 fl (80.0-105.0); MEAN CORPUSCULAR HEMOGLOBIN 31.2 pg (25.0-35.0); MEAN CORPUSCULAR HGB CONC 33.1 g/dl (31.0-37.0); MEAN PLATELET VOLUME 9.7 fl (7.0-11.0); MONO # 0.6 (0.1-0.6); MONO % 9.4 % (1.0-6.0); RBC 4.1 10^6/uL (3.5-6.1); RED CELL DISTRIBUTION WIDTH 14.7 % (11.5-14.5); WHITE BLOOD COUNT 6.4 10^3/uL (4.5-11.0)
[2018-12-27 18:04] LABS: INR 2.07; PARTIAL THROMBOPLASTIN TIME 39.3 Seconds (26.9-38.3)
--- NOTE | 2018-12-27 18:06 | RAD ---
Date of service: 12/27/2018 PROCEDURE: Right Ankle Radiographs. HISTORY: Lateral malleolar Pain. No history of recent/ related trauma provided COMPARISON: None available. FINDINGS: BONES: Plantar and Achilles Tendon insertion calcaneal spurs. No fractures identified. JOINTS: Normal. No osteoarthritis. Ankle mortise maintained. Talar dome intact SOFT TISSUES: Normal. OTHER FINDINGS: None. IMPRESSION: No acute findings related to/ accounting for the clinical presentation.
--- NOTE | 2018-12-27 18:07 | RAD ---
Date of service: 12/27/2018 PROCEDURE: CHEST RADIOGRAPH, 1 VIEW HISTORY: reproducible pain COMPARISON: 11/11/2018 portable chest single view FINDINGS: LUNGS: Clear. PLEURA: No pneumothorax or pleural fluid seen. CARDIOVASCULAR: No aortic atherosclerotic calcification present. No radiographic findings to suggest acute or significant cardiovascular disease. Venous access catheter in stable, satisfactory position. OSSEOUS STRUCTURES: No significant abnormalities. VISUALIZED UPPER ABDOMEN: Normal. OTHER FINDINGS: None. IMPRESSION: No active disease. No acute/significant interval changes.
--- NOTE | 2018-12-27 18:20 | CT ---
Date of service: 12/27/2018 PROCEDURE: CT Thoracic Spine without contrast HISTORY: tenderness to thoracic spine COMPARISON: 11/26/2018. PET-CT scan. Summary of findings on the comparison examination: Normal FDG activity is seen in the axial skeleton. 09/23/2017 CT thorax TECHNIQUE: Axial computed tomography images were obtained of the thoracic spine without intravenous contrast. Coronal and sagittal reformatted images were created and reviewed. Radiation dose: Total exam DLP = 1317.32 mGy-cm. This CT exam was performed using one or more of the following dose reduction techniques: Automated exposure control, adjustment of the mA and/or kV according to patient size, and/or use of iterative reconstruction technique. FINDINGS: VERTEBRAE: Unremarkable. No fracture. Normal alignment. DISCS/SPINAL CANAL/NEURAL FORAMINA: Multilevel degenerative change primarily disc space narrowing. Non marginal osteophyte formation primarily in the lower thoracic spine.. PARASPINAL SOFT TISSUES: Unremarkable. OTHER FINDINGS: Unremarkable. IMPRESSION: Multilevel degenerative change. No evidence of lytic nor blastic abnormalities identified.
[2018-12-27 18:47] LABS: ALB/GLOB RATIO 1.4 (1.1-1.8); ALBUMIN 4.2 g/dL (3.0-4.8); ALT/SGPT 32 U/L (7-56); AST/SGOT 41 U/L (14-36); BLOOD UREA NITROGEN 16 mg/dL (7-21); CALCIUM 9.7 mg/dL (8.4-10.5); GFR NON-AFRICAN AMERICAN > 60
[2018-12-27 19:14] VITALS: BP 135/68; PULSE 64; TEMP 98.2; O2SAT 98
== END 2018-12-27 19:16 | disposition home or self-care (01) ==
LOC: ED 15:27
DX: M25.571 Pain in right ankle and joints of right foot (principal); M54.9 Dorsalgia, unspecified; E66.01 Morbid (severe) obesity due to excess calories; I48.91 Unspecified atrial fibrillation; Z85.72 Personal history of non-Hodgkin lymphomas; E03.9 Hypothyroidism, unspecified